=== PATIENT | female | born 2000 | race Caucasian/White ===

== ENCOUNTER 2019-08-24 12:50 | Inpatient (IN) | payer MEDICAID ==
[~2019-08-24] VITALS: Ht 152.4 cm; Wt 49.9 kg
[2019-08-24 12:50] VITALS: BP_SYST 114
--- NOTE | 2019-08-24 12:50 | NUR ---
BROUGHT BACK TO BED #4 VIA WHEELCHAIR, PT IS NON-RESPONSIVE, CYANOTIC, WITH AGONAL RESPIRATIONS. PLACED IN BED #[address] AVILES TO COME TO BEDSIDE. PT MOVED TO ROOM #1 FOR CLOSER OBSERVATION. AUNT STATES PT IS WITHDRAWLING FROM XANAX AND PERCOCETS, PT HAS BEEN HOMELESS BUT NOW STAYING WITH AUNT. AUNT STATES PT HAS NOT HAD ANY XANAX FOR LAST 2 DAYS, THEY ARE WEANING HER FROM THEM.
--- NOTE | 2019-08-24 12:50 | NUR ---
BRENDA Skinner at bedside examining patient.
[2019-08-24] MEDS ORDERED: SUCCINYLCHOLINE CHLORIDE 20 MG/ML(QUELICIN) IVP ONE ×2 (12:51→13:15)
[2019-08-24] MEDS ORDERED: ETOMIDATE 20 MG/ 10 ML VIAL (AMIDATE) IVP ONE ×2 (12:51→13:15)
--- NOTE | 2019-08-24 13:04 | NUR ---
RT NOTES ER 4, Pt was ventilated with 100% O2 via ambubag to mask, transferred to ER 1 for intubation.
--- NOTE | 2019-08-24 13:05 | NUR ---
ETOMIDATE 20MG GIVEN FOR PREP TO BE INTUBATED
--- NOTE | 2019-08-24 13:05 | NUR ---
Patient not known to be of DNR status. Patient medicated with mg of 20mg Etom and 100mg of Succ for sedation prior to placement of ET tube. Respiratory therapy at bedside prior to placement. Size 7 ET tube placed by Dr. Skinner. Cuff inflated with 10 cc air. Auscultation of breath sounds over bilateral chest wall. ET tube secured with O2 sats 98% pulse ox. PCXR ordered to check tube placement.
--- NOTE | 2019-08-24 13:06 | NUR ---
SUCCS 100MG IV GIVEN
--- NOTE | 2019-08-24 13:08 | NUR ---
RT NOTES Pt. was intubated by Dr Skinner with 7.0 ETT secured at 22 cm lipline. CO2 detector changed to yellow. Bilateral b/s & chest rise noted. Placed pt on vent AC 14 350 100. Awaiting cxr and abg results
[2019-08-24] MEDS ORDERED: ONDANSETRON HCL 4 MG/2 ML VIAL IVP ONE (13:15)
[2019-08-24] MEDS ORDERED: LORazepam 2 MG/ML VIAL IVP ONE ×2 (13:15→19:15)
[2019-08-24] MEDS ORDERED: NACL 0.9% 2,000 ML IV ONE (13:15)
--- NOTE | 2019-08-24 13:15 | NUR ---
Radiology at bedside to perform CXR
[2019-08-24] MEDS ORDERED: ONDANSETRON HCL 4 MG/2 ML VIAL ONE (13:19)
[2019-08-24] MEDS ORDERED: LORazepam 2 MG/ML VIAL ONE (13:22)
[2019-08-24] MEDS ORDERED: LORazepam 2 MG/ML VIAL IM ONE (13:30)
[2019-08-24] MEDS ORDERED: NACL 0.9% 1,000 ML IV ONE ×2 (13:30→15:45)
[2019-08-24] MEDS ORDERED: PROPOFOL DRIP 100 ML IV ONE ×2 (13:30→13:41)
--- NOTE | 2019-08-24 13:31 | NUR ---
Propofol started and then d/c'd due to low BP. MD ordered levophed and versed.
[2019-08-24] MEDS ORDERED: KETAMINE 30 MG/3 ML SYRINGE 30 MG in NS 100 ML IV ONE (13:45)
--- NOTE | 2019-08-24 13:45 | NUR ---
RT NOTES Pulled ETT to 20cm with RT Director Zac per CXR, vent settings to AC 20 380 75% per ABG results.
--- NOTE | 2019-08-24 13:45 | NUR ---
RT NOTES: Late entry Pt came in with what appears to be wound/scab on left cheek, RN aware and provided RT with skin barrier to be placed under ETT tape.
[2019-08-24] MEDS ORDERED: NOREPINEPHRINE BITARTRATE 4 MG in NS 246 ML IV ONE (14:00)
[2019-08-24] MEDS ORDERED: KETAMINE 30 MG/3 ML SYRINGE ONE (14:18)
--- NOTE | 2019-08-24 14:20 | NUR ---
Triple lumen central line placed by MD to Right IJ, pt tolerated well. CXR completed to confirm placement.
--- NOTE | 2019-08-24 14:30 | NUR ---
# 16 FR Fritz catheter with use of sterile technique. Immediate return of 10 cc rush urine noted. Bedside drainage bag placed below level of bladder. Urine sample collected and sent to lab. Pt tolerated procedure well.
--- NOTE | 2019-08-24 14:40 | NUR ---
# 14 FR NG tube placed to right nare. Placement checked by auscultation of instilled air into stomach and aspiration of gastric contents. Tubing taped in place to prevent dislodging. Patient tolerated well. Addendum: 08/24/19 at 1916 by JOHNIEEDWARay #16 F NG tube placed
[2019-08-24] MEDS ORDERED: PIPERACILLIN/TAZO 3.375 GM in NS 50 ML IV ONE (15:00)
[2019-08-24 15:01] LABS: HEMATOCRIT 36.6 % (36-48); HEMOGLOBIN 12.1 g/dL (12.0-16.0); MEAN CORPUSCULAR HEMOGLOBIN 31 pg (27-31); MEAN CORPUSCULAR HGB CONC 33 % (32-36); MEAN CORPUSCULAR VOLUME 94 fL (79.0-98.0); PLATELET COUNT (AUTO) 179 K/uL (130-430); RED BLOOD CELL COUNT(AUTO) 3.92 MIL/uL (4.2-6.2); RED CELL DISTRIBUTION WIDTH 13.8 % (9.0-15.0); WHITE BLOOD COUNT (AUTO) 18.7 K/uL (4.5-11.0)
--- NOTE | 2019-08-24 15:10 | NUR ---
Urine collected from olsen and sent to Lab
--- NOTE | 2019-08-24 15:14 | NUR ---
EKG performed at BS by RN. Physician given copy of EKG for review.
--- NOTE | 2019-08-24 15:15 | NUR ---
Nasal swab obtained to r/o covid as per MD order
[2019-08-24 15:25] LABS: ANION GAP 16 (5-15); CHLORIDE 102 mmol/L (98-107); CREATININE 2.27 mg/dL (0.55-1.30); GLUCOSE 83 mg/dL (70-99); POTASSIUM 3.4 mmol/L (3.5-5.1); SODIUM SERUM 138 mmol/L (136-145); UREA NITROGEN, BLOOD 27 mg/dL (8-21)
[2019-08-24 15:28] LABS: GFR AFRICAN AMERICAN 36 mL/min (>90)
[2019-08-24] MEDS ORDERED: AZITHROMYCIN 500 MG in NS 250 ML IV ONE (15:30)
[2019-08-24 15:34] LABS: CALCIUM 6.1 mg/dL (8.4-11.0)
[2019-08-24] MEDS ORDERED: PIPERACILLIN/TAZOBACTAM 3.375 GM/VIAL (ZOSYN) IV ONE (15:35)
[2019-08-24 15:37] LABS: ALANINE AMINOTRANSFERASE 541 U/L (12-78); ASPARTATE AMINOTRANSFERASE 852 U/L (10-37)
[2019-08-24 15:38] LABS: ACETAMINOPHEN 4 ug/mL (1-30); ALCOHOL, BLOOD < 3 mg/dL (<10)
[2019-08-24 15:46] LABS: ATYPICAL LYMPHOCYTES % 0 % (0-0); BAND % (MANUAL) 82 % (0-6); BASOPHILS % (MANUAL) 0 % (0-2); EOSINOPHILS % (MANUAL) 0 % (0-7); LYMPHOCYTES % (MANUAL) 0 % (20-46); METAMYELOCYTES % 4 % (0-0); MONOCYTES % (MANUAL) 1 % (0-11)
[2019-08-24 15:58] LABS: BILIRUBIN,URINE 2+ (NEGATIVE); BLOOD, URINE 3+ (NEGATIVE); CLARITY/URINE CLOUDY (CLEAR); GLUCOSE,URINE NEGATIVE (NEGATIVE); KETONES,URINE 1+ (NEGATIVE); LEUKOCYTE ESTERASE ,URINE TRACE (NEGATIVE); NITRITE, URINE NEGATIVE (NEGATIVE); PROTEIN URINE 2+ (NEGATIVE)
[2019-08-24] MEDS ORDERED: PANTOPRAZOLE SODIUM 40 MG/VIAL (PROTONIX) IVP ONE (16:00)
[2019-08-24] MEDS: MIDAZOLAM HCL IN 0.9 % NACL/PF 50 ML IV PRN (16:00)
[2019-08-24 16:08] LABS: INR 1.7 (0.8-1.2); PROTHROMBIN TIME 17.1 SECS (9.5-12.5)
[2019-08-24 16:12] LABS: COLOR,URINE AMBER (YELLOW)
[2019-08-24] MEDS ORDERED: SODIUM BICARBONATE 8.4% JECT 50 MEQ/50 ML SYRINGE IVP ONE (16:15)
[2019-08-24 16:16] LABS: BARBITURATE, URINE NEGATIVE (NEG <=200); BENZODIAZEPINE, URINE POSITIVE (NEG <=150); CANNABINOID, URINE POSITIVE (NEG <=50); COCAINE, URINE NEGATIVE (NEG <=150); METHAMPHETAMINES SCREEN,URINE NEGATIVE (NEG <=500); OPIATE, URINE POSITIVE (NEG <=100); PHENCYCLIDINE SCREEN,URINE NEGATIVE (NEG <=25); UR TRICYCLIC ANTIDEPRESSANTS NEGATIVE (NEG <=300); URINE AMPHETAMINE NEGATIVE (NEG <=500); URINE METHADONE NEGATIVE (NEG <=200); URINE OXYCODONE SCREEN NEGATIVE (NEG <=100); URINE PROPOXYPHENE SCREEN NEGATIVE (NEG <=300)
[2019-08-24] MEDS ORDERED: AZITHROMYCIN 500 MG/VIAL (ZITHROMAX) IV ONE (16:37)
[2019-08-24 16:41] LABS: BACTERIA,URINE FEW /HPF (None Seen)
[2019-08-24 16:42] LABS: COARSE GRANULAR CASTS,URINE 0-10 /LPF (None Seen); FINE GRANULAR CASTS,URINE 0-10 /LPF (None Seen); MUCUS,URINE None Seen /LPF (None Seen); URINE AMORPHOUS URATE 3+ /HPF (None Seen)
--- NOTE | 2019-08-24 16:42 | NUR ---
Spoke to Bahman, correctional casework specialist, stated that pt is 18 y/o and shouldnt be admitted under a peds doctor. Informed correctional casework specialist that pt was not admitted to a peds doctor, but to our instructional support assistant hospitalist, Dr. Thompson, and that Dr. Skinner, ER Physician, said to admit pt due to pt's critical status. insurance: [facility]
[2019-08-24] MEDS: NACL 0.9% 1,000 ML IV SCH ×2 (17:04→20:45)
[2019-08-24 17:09] LABS: C-REACTIVE PROTEIN QUANT 39.7 mg/dL (0-0.5)
[2019-08-24] MEDS ORDERED: POTASSIUM CHLORIDE 20 MEQ/PKT PACKET PO ONE (17:15)
[2019-08-24] MEDS ORDERED: CHOLECALCIFEROL (VITAMIN D3) 2,000 UNIT TABLET PO ONE (17:15)
[2019-08-24] MEDS ORDERED: CALCIUM CHLORIDE 1 GM in NS 100 ML IV ONE (17:15)
--- NOTE | 2019-08-24 17:20 | NUR ---
Blood sugar 74mg/dL, MD aware ordered 50 of dextrose IV, given.
[2019-08-24] MEDS ORDERED: DEXTROSE 50% JECT 50 ML DISP.SYRIN IVP ONE (17:30)
[2019-08-24] MEDS ORDERED: PIPERACILLIN/TAZO 3.375 GM in NS 50 ML IV SCH (18:00)
--- NOTE | 2019-08-24 18:07 | NUR ---
Blood sugar rechecked 147mg/dL, aware
--- NOTE | 2019-08-24 18:15 | NUR ---
Per Dr. Skinner, seizure precations in place
--- NOTE | 2019-08-24 18:18 | NUR ---
Pt swabbed for MRSA and Influenza as ordered by .
--- NOTE | 2019-08-24 18:33 | NUR ---
Per safia Roy to wean down on levophed slowly to keep SBP above 110
[2019-08-24] MEDS ORDERED: DEXAMETHASONE SOD PHOSPHATE 4 MG/ML VIAL IVP ONE (18:45)
--- NOTE | 2019-08-24 19:20 | NUR ---
Care of patient endorsed to CHARLES Brown. Pt currently resting in bed.
--- NOTE | 2019-08-24 19:25 | NUR ---
Assumed care of patient, patient resting at this time. Mother at bedside and reports that the patient had a similar incident last month in which patient overdosed on Xanax and ran out of the hospital. Patient reported to mother that she had overdosed on Thursday morning. Patient under the supervision of her aunt who manages a sober living and has tried to wean patient off the Xanax. Patient was reported to have slept all day yesterday and today brought to the ED for cyanosis and agonal breathing. Patient currently on seizure precautions, intubated with [address] secured 23 cm at the teeth. Levophed running and to titrate q 10 minutes to maintain SBP >110.
[2019-08-24] MEDS: ACETAMINOPHEN 650 MG/20.3 ML UDC PO PRN (20:16)
--- NOTE | 2019-08-24 20:16 | NUR ---
Acetaminophen 650mg given via 16 FR NGT for temporal temperature 101.3. Patient tolerated well.
--- NOTE | 2019-08-24 20:30 | NUR ---
No adverse reactions noted aftermedication administration. Will continue to monitor.
[2019-08-24 20:34] LABS: CREATININE 1.93 mg/dL (0.55-1.30)
--- NOTE | 2019-08-24 20:40 | NUR ---
End of life care decisions discussed with mother by Dr. Gray. Opportunity for questions and concerns addressed. Patient's code status is FULL CODE paperwork completed and placed in chart.
[2019-08-24 20:41] LABS: CALCIUM 6.9 mg/dL (8.4-11.0); POTASSIUM 2.9 mmol/L (3.5-5.1)
--- NOTE | 2019-08-24 20:55 | NUR ---
BS 91 @ 2049.
[2019-08-24] MEDS ORDERED: KCL 40 mEq in 100 mL (PREMIX) 100 ML IV ONE (21:00)
[2019-08-24] MEDS ORDERED: CALCIUM GLUCONATE 1 GM/10 ML VIAL IVP ONE (21:00)
[2019-08-24] MEDS: CALCIUM CARBONATE 500 MG/ TAB.CHEW PO SCH (21:02)
[2019-08-24] MEDS ORDERED: KCL 20 mEq in 100 mL (PREMIX) 200 ML IV ONE (21:21)
[2019-08-24] MEDS: PANTOPRAZOLE SODIUM 40 MG/VIAL (PROTONIX) IVP SCH (21:28)
[2019-08-24] MEDS: HEPARIN SODIUM,PORCINE 5000 UNITS/ML VIAL SUBCUT SCH (21:59)
--- NOTE | 2019-08-24 22:18 | NUR ---
600 ml of dark yellow urine removed from olsen catheter bag.
--- NOTE | 2019-08-24 22:20 | NUR ---
Patient to be transported to ICU-8 accompanied by RN and RT at this time.
[2019-08-24 22:45] VITALS: BP_SYST 97
--- NOTE | 2019-08-24 22:45 | NUR ---
RECEIVED FROM DEPT VIA [facility], A 18 YO FEMALE WITH DIAGNOSIS OF ACUTE RESPIRATORY FAILURE. URINE DRUG SCREEN WAS FOUND TO BE POSITIVE FOR BENZO'S, CANNABIS, AND OPIATES. ORALLY INTUBATED. NGT TO RIGHT NARES PLACED ON LIS WITH GREENISH BROWN SECRETIONS DRAINING. SINGH CATH PATENT DRAINING CLEAR YELLOW URINE TO GRAVITY. RIGHT IJ TLC DRSG D/I. SINUS TACH ON MONITOR. Addendum: 08/25/19 at 0400 by Ramiro Moody RN LEVOPHED DRIP AT 18 MCG/MIN, VERSED DRIP AT 1 MG/HR.
[2019-08-24 23:00] VITALS: BP_SYST 93
--- NOTE | 2019-08-24 23:10 | NUR ---
PAGED DR. BOYD PAGER # [phone]
[2019-08-24 23:30] VITALS: BP_SYST 97
[2019-08-24] MEDS ORDERED: NOREPINEPHRINE 4 MG/4 ML VIAL IV ONE (23:41)
[2019-08-24] MEDS: NOREPINEPHRINE BITARTRATE 4 MG in NS 246 ML IV PRN (23:56)
[2019-08-24] MEDS: PIPERACILLIN/TAZO 2.25G/DEX-IS 50 ML IV SCH (23:57)
[2019-08-25] VITALS (36 sets, daily range): BP systolic 83–125
--- NOTE | 2019-08-25 | NUR ---
SUCTIONED ETT WITH SMALL AMOUNT OF THIN WHITE MUCUS OBTAINED. ORAL CARE GIVEN.
[2019-08-25] MEDS: CALCIUM CARBONATE 500 MG/ TAB.CHEW PO SCH ×5 (00:02→20:43)
--- NOTE | 2019-08-25 00:30 | NUR ---
LEVOPHED DRIP TITRATED TO 20 MCG/MIN.
--- NOTE | 2019-08-25 01:30 | NUR ---
VERSED DRIP TITRATED TO 2 MG/HR.
[2019-08-25] MEDS ORDERED: NOREPINEPHRINE 4 MG/4 ML VIAL IV ONE ×2 (02:37→08:38)
--- NOTE | 2019-08-25 03:00 | NUR ---
OPENS EYES SPONTANEOUSLY MOMENTARILY. ABLE TO TRACK.
[2019-08-25] MEDS: NACL 0.9% 1,000 ML IV SCH ×5 (03:04→20:45)
[2019-08-25] MEDS: NOREPINEPHRINE BITARTRATE 4 MG in NS 246 ML IV PRN ×3 (03:48→23:52)
--- NOTE | 2019-08-25 04:00 | NUR ---
SUCTIONED. ORAL CARE RENDERED. REPOSITIONED.
[2019-08-25 05:38] LABS: BASOPHILS % (AUTO) 0.1 % (0.0-2.0); EOSINOPHILS # (AUTO) 0.1 K/uL (0.0-0.4); EOSINOPHILS % (AUTO) 0.1 % (0.0-4.0); HEMATOCRIT 35.6 % (36-48); LYMPHOCYTES # (AUTO) 0.3 K/uL (1.0-5.5); LYMPHOCYTES % (AUTO) 0.6 % (20.5-51.5); MEAN CORPUSCULAR HEMOGLOBIN 32 pg (27-31); MEAN CORPUSCULAR HGB CONC 34 % (32-36); MEAN CORPUSCULAR VOLUME 93 fL (79.0-98.0); MONOCYTES # (AUTO) 0.6 K/uL (0.0-1.0); MONOCYTES % (AUTO) 1.2 % (1.7-9.3); NEUTROPHILS # (AUTO) 47.3 K/uL (1.8-7.7); PLATELET COUNT (AUTO) 171 K/uL (130-430); RED BLOOD CELL COUNT(AUTO) 3.82 MIL/uL (4.2-6.2); RED CELL DISTRIBUTION WIDTH 14.2 % (9.0-15.0)
[2019-08-25 05:47] LABS: WHITE BLOOD COUNT (AUTO) 48.3 K/uL (4.5-11.0)
[2019-08-25] MEDS: HEPARIN SODIUM,PORCINE 5000 UNITS/ML VIAL SUBCUT SCH ×3 (05:54→21:45)
[2019-08-25] MEDS: PIPERACILLIN/TAZO 2.25G/DEX-IS 50 ML IV SCH ×4 (05:54→23:28)
--- NOTE | 2019-08-25 05:59 | NUR ---
CONSULT DR. BALLESTEROS SEPSIS [phone] SPOKE WITH RENNY
--- NOTE | 2019-08-25 06:00 | NUR ---
CALL PLACED TO DR BALLESTEROS FOR ID CONSULT AND TO REPORT WBC48.3 AND BLOOD CULTURES GRAM POSITIVE COCCI IN CHAINS. WAITING FOR CALL BACK.
--- NOTE | 2019-08-25 08:00 | NUR ---
Opening Notes Patient received in bed connected to civil designer with ST. Patient intubated and on ventilator with settings AC 20, FiO2 70%, tidal volume 380 breathing evenly and unlabored. Patient with RIJ receiving fluids, levophed, and versed. Patient with right nare NGT to low-intermittent suction with green-colored output. Patient has a olsen catheter draining yellow urine. Safety and isolation precautions observed.
[2019-08-25 08:03] LABS: CALCIUM 6.5 mg/dL (8.4-11.0); POTASSIUM 3.5 mmol/L (3.5-5.1)
[2019-08-25 08:04] LABS: CREATININE 1.46 mg/dL (0.55-1.30); TOTAL BILIRUBIN 1.4 mg/dL (0.0-1.0)
[2019-08-25 08:05] LABS: ALBUMIN 1.5 g/dL (3.4-4.8)
[2019-08-25 08:06] LABS: PHOSPHORUS 4.9 mg/dL (2.7-4.5)
[2019-08-25] MEDS ORDERED: VASOPRESSIN 200 UNITS in D5W 90 ML IV PRN (08:30)
[2019-08-25] MEDS ORDERED: MAGNESIUM SULFATE 50 ML IV ONE (08:30)
[2019-08-25] MEDS ORDERED: CALCIUM CHLORIDE 1 GM/10ML VIAL (13.6 mEq Ca++/VIAL) IV ONE (08:30)
[2019-08-25] MEDS: CHOLECALCIFEROL (VITAMIN D3) 2,000 UNIT TABLET PO SCH (08:48)
[2019-08-25] MEDS: PANTOPRAZOLE SODIUM 40 MG/VIAL (PROTONIX) IVP SCH ×2 (08:48→20:45)
[2019-08-25] MEDS ORDERED: FAMOTIDINE PF 20 MG/2 ML VIAL IVP SCH (09:00)
--- NOTE | 2019-08-25 09:10 | NUR ---
0910 TITRATED FIO2 DOWN TO 50% PER ABIDALI. SPO2 99%, HR 106. PT TOLERATING WELL
[2019-08-25] MEDS ORDERED: CALCIUM CHLORIDE 2 GM in NS 100 ML IV ONE (09:30)
--- NOTE | 2019-08-25 10:00 | NUR ---
CT Patient taken to radiology accompanied by RT and tech. Patient tolerated well. No signs of distress noted. Patient returned to ICU-8 and connected to lab scientist. Patient repositioned and suctioned with minimal secretions out.
--- NOTE | 2019-08-25 10:10 | NUR ---
[id number] BAGGED PT VIA AMBU BAG 15LPM. NO RESPIRATORY DISTRESS NOTED.
--- NOTE | 2019-08-25 10:33 | NUR ---
Nutrition Update Kunal Scale 15 noted. Pt admitted for acute respiratory failure Diet: 2CALHN at 30ml/hr, 100ml FWF Q6h BMI: 21.5 kg/m2 RD to follow per nutrition care standards.
[2019-08-25] MEDS: MIDAZOLAM HCL IN 0.9 % NACL/PF 50 ML IV PRN ×2 (11:32→20:38)
[2019-08-25] MEDS ORDERED: MIDAZOLAM HCL IN 0.9 % NACL/PF 50 ML IV ONE (11:37)
[2019-08-25] MEDS: VANCOMYCIN HCL 1,000 MG in NS 250 ML IV SCH (11:42)
--- NOTE | 2019-08-25 12:00 | NUR ---
RN Rounds Patient in no signs of distress at this time. Patient sedated with eyes closed. Patient responds to tactile stimuli. Performed bedside and oral care. Patient suctioned with small amount of secretions. Safety and isolation precautions enforced.
[2019-08-25 12:08] LABS: HEMATOCRIT 34.1 % (36-48); HEMOGLOBIN 11.3 g/dL (12.0-16.0); MEAN CORPUSCULAR HEMOGLOBIN 31 pg (27-31); MEAN CORPUSCULAR HGB CONC 33 % (32-36); MEAN CORPUSCULAR VOLUME 94 fL (79.0-98.0); PLATELET COUNT (AUTO) 148 K/uL (130-430); RED BLOOD CELL COUNT(AUTO) 3.65 MIL/uL (4.2-6.2); RED CELL DISTRIBUTION WIDTH 14.1 % (9.0-15.0)
[2019-08-25 12:12] LABS: WHITE BLOOD COUNT (AUTO) 40.9 K/uL (4.5-11.0)
[2019-08-25 12:32] LABS: ATYPICAL LYMPHOCYTES % 0 % (0-0); BAND % (MANUAL) 76 % (0-6); BASOPHILS % (MANUAL) 0 % (0-2); EOSINOPHILS % (MANUAL) 0 % (0-7); LYMPHOCYTES % (MANUAL) 2 % (20-46); MONOCYTES % (MANUAL) 1 % (0-11)
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
--- NOTE | 2019-08-25 15:10 | NUR ---
1510 TITRATED FIO2 DOWN TO 40%. SPO2 96%, HR 89. PT TOLERATING WELL.
[2019-08-25] MEDS: AZITHROMYCIN 500 MG in NS 250 ML IV SCH (15:53)
--- NOTE | 2019-08-25 16:00 | NUR ---
RN Rounds Patient resting in bed currently being sedated at this time. Patient in no signs of distress noted. Safety and isolation precautions enforced.
--- NOTE | 2019-08-25 16:46 | NUR ---
Dietitian Recommendations *Recommend Jevity 1.5 at 40ml/hr with 100ml free water flush Q6h. *Provides 1440 calories, 61g of protein, and 1130ml total of free H20 *Meets 107% of calories and 81% of protein estimated nutrition needs Please see Nutrition Assessment for details. LT, RD
[2019-08-25 16:57] LABS: CALCIUM 8.5 mg/dL (8.4-11.0); CREATININE 1.23 mg/dL (0.55-1.30); POTASSIUM 3.5 mmol/L (3.5-5.1)
--- NOTE | 2019-08-25 17:35 | NUR ---
Called Dr. Rider with a consult, spoke with Earnest from the exchange
[2019-08-25] MEDS: HYDROCORTISONE 10 MG TABLET (CORTEF) PO SCH ×2 (19:00→23:28)
--- NOTE | 2019-08-25 19:30 | NUR ---
Closing Note Provided plan of care via sbar from endorsing CHARLES Calles.
--- NOTE | 2019-08-25 19:30 | NUR ---
Opening Note Received plan of care via sbar from endorsing CHARLES Calles.
--- NOTE | 2019-08-25 19:43 | NUR ---
Closing Notes Endorsed to awake overnight counselor RN using SBAR format. No signs of distress noted.
[2019-08-26] VITALS (31 sets, daily range): BP systolic 90–133
--- NOTE | 2019-08-26 01:05 | NUR ---
Opening Note Received report from CHARLES Vera using SBAR approach.
--- NOTE | 2019-08-26 01:45 | NUR ---
RN Rounds Patient is sedated and sleeping in bed with no signs or symptoms of distress noted. Patient is currently intubated with settings AC 20, Tidal Volume: 380, FiO2 380, PEEP 5. Fritz catheter is draining via gravity. Patient is on Tubefeeding with residual of 50 cc. Suctioned patient and got minimal gage sputum. Bed locked in lowest position, safety precautions in place. Will continue to monitor patient.
--- NOTE | 2019-08-26 02:00 | NUR ---
CHG Provided patient with CHG bath. Clean linens changed. Patient tolerated well. No signs or symptoms of distress. Will continue to monitor.
--- NOTE | 2019-08-26 04:30 | NUR ---
MD rounds Dr. Benavidez came to see patient. New orders received.
[2019-08-26] MEDS: NACL 0.9% 1,000 ML IV SCH ×3 (04:56→12:45)
[2019-08-26] MEDS: PIPERACILLIN/TAZO 2.25G/DEX-IS 50 ML IV SCH ×4 (05:13→23:16)
[2019-08-26] MEDS: HYDROCORTISONE 10 MG TABLET (CORTEF) PO SCH ×4 (05:13→23:16)
[2019-08-26] MEDS: HEPARIN SODIUM,PORCINE 5000 UNITS/ML VIAL SUBCUT SCH ×3 (05:17→21:21)
--- NOTE | 2019-08-26 07:15 | NUR ---
Closing Note Endorsed report to AM nurse using SBAR approach.
[2019-08-26] MEDS ORDERED: MIDAZOLAM HCL 5 MG/5 ML VIAL ONE ×2 (07:19→07:20)
--- NOTE | 2019-08-26 07:30 | NUR ---
Opening Notes Patient received in bed on cardiac catheterization technician with NSR. Patient orally intubated with settings of AC 20, FiO2 40%, tidal volume 380, PEEP 5 breathing evenly and unlabored with no signs of distress noted. Patient with right nare NGT. Patient with RIJ receiving fluids and multiple drips. Patient has a olsen catheter draining rush-colored urine. Safety precautions enforced.
[2019-08-26] MEDS: MIDAZOLAM HCL IN 0.9 % NACL/PF 50 ML IV PRN ×2 (07:59→17:38)
[2019-08-26 08:08] LABS: HEPATITIS A AB, IgM Negative (Negative); HEPATITIS B CORE AB, IgM Negative (Negative); HEPATITIS B SURFACE AG Negative (Negative)
[2019-08-26 08:28] LABS: HEMOGLOBIN 10.3 g/dL (12.0-16.0); MEAN CORPUSCULAR HGB CONC 33 % (32-36); RED CELL DISTRIBUTION WIDTH 14.7 % (9.0-15.0)
[2019-08-26 08:36] LABS: BASOPHILS % (AUTO) 0.1 % (0.0-2.0); EOSINOPHILS % (AUTO) 0.1 % (0.0-4.0); HEMATOCRIT 31.3 % (36-48); LYMPHOCYTES # (AUTO) 0.8 K/uL (1.0-5.5); LYMPHOCYTES % (AUTO) 2.2 % (20.5-51.5); MEAN CORPUSCULAR HEMOGLOBIN 31 pg (27-31); MEAN CORPUSCULAR VOLUME 94 fL (79.0-98.0); MONOCYTES # (AUTO) 0.7 K/uL (0.0-1.0); MONOCYTES % (AUTO) 1.9 % (1.7-9.3); NEUTROPHILS # (AUTO) 36.7 K/uL (1.8-7.7); PLATELET COUNT (AUTO) 107 K/uL (130-430); RED BLOOD CELL COUNT(AUTO) 3.32 MIL/uL (4.2-6.2)
[2019-08-26] MEDS ORDERED: QUEtiapine FUMARATE 25 MG TABLET PO SCH (09:00)
[2019-08-26 09:05] LABS: WHITE BLOOD COUNT (AUTO) 38.3 K/uL (4.5-11.0)
[2019-08-26 09:06] LABS: ALBUMIN 1.5 g/dL (3.4-4.8); CALCIUM 7.1 mg/dL (8.4-11.0); CREATININE 0.87 mg/dL (0.55-1.30); NEUTROPHILS % (AUTO) 95.7 % (40.0-70.0); PHOSPHORUS 3.4 mg/dL (2.7-4.5); POTASSIUM 3.6 mmol/L (3.5-5.1); TOTAL BILIRUBIN 0.7 mg/dL (0.0-1.0)
[2019-08-26 09:31] LABS: C-REACTIVE PROTEIN QUANT 49.1 mg/dL (0-0.5)
[2019-08-26] MEDS: PANTOPRAZOLE SODIUM 40 MG/VIAL (PROTONIX) IVP SCH ×2 (09:32→20:52)
[2019-08-26] MEDS: CALCIUM CARBONATE 500 MG/ TAB.CHEW PO SCH ×4 (09:32→20:52)
[2019-08-26] MEDS: VANCOMYCIN HCL 1,000 MG in NS 250 ML IV SCH (09:32)
[2019-08-26] MEDS: CHOLECALCIFEROL (VITAMIN D3) 2,000 UNIT TABLET PO SCH ×2 (09:32→20:52)
[2019-08-26 09:50] LABS: INR 1.3 (0.8-1.2); PROTHROMBIN TIME 13.1 SECS (9.5-12.5)
[2019-08-26 10:02] LABS: CKMB RELATIVE INDEX 0.5 (0.0-2.9); CREATINE KINASE MB 4.4 ng/mL (0-3.6)
[2019-08-26 10:12] LABS: ERYTHROCYTE SEDIMENTATION RATE 37 MM/HR (0-20)
--- NOTE | 2019-08-26 12:00 | NUR ---
RN Rounds Patient resting and sedated in bed with no signs of distress noted.
--- NOTE | 2019-08-26 13:20 | NUR ---
1320 TITRATED FIO2 DOWN TO 30%. SPO2 95%, HR 64. PT TOLERATING WELL.
[2019-08-26] MEDS: QUEtiapine FUMARATE 25 MG TABLET PO SCH ×3 (15:00→20:52)
[2019-08-26] MEDS: LR 1,000 ML IV SCH ×2 (15:18→20:51)
[2019-08-26] MEDS: AZITHROMYCIN 500 MG in NS 250 ML IV SCH (15:19)
--- NOTE | 2019-08-26 16:00 | NUR ---
RN Rounds Patient resting and sedated in bed with no signs of distress noted.
--- NOTE | 2019-08-26 19:38 | NUR ---
Closing Notes Closing Notes Patient endorsed to security shift supervisor RN using SBAR format. No signs of distress noted.
--- NOTE | 2019-08-26 19:39 | NUR ---
Opening Note Received report from AM nurse using SBAR approach.
--- NOTE | 2019-08-26 20:45 | NUR ---
RN Rounds Patient is sedated and sleeping in bed with no signs or symptoms of distress noted. Patient is currently intubated with settings AC 20, Tidal Volume: 380, FiO2 30, PEEP 5. Fritz catheter is draining via gravity. Suctioned patient and got minimal gage sputum. Bed locked in lowest position, safety precautions in place. Will continue to monitor patient.
[2019-08-26] MEDS: MAGNESIUM OXIDE 400 MG TABLET NG SCH (20:52)
[2019-08-26] MEDS: ASCORBIC ACID 500 MG TABLET NG SCH (20:52)
[2019-08-26] MEDS: NOREPINEPHRINE BITARTRATE 4 MG in NS 246 ML IV PRN (22:48)
[2019-08-27] VITALS (36 sets, daily range): BP systolic 98–137
[2019-08-27] MEDS: MIDAZOLAM HCL IN 0.9 % NACL/PF 50 ML IV PRN ×2 (01:42→17:32)
--- NOTE | 2019-08-27 03:30 | NUR ---
CHG Provided patient with CHG bath. Clean linens changed. Suctioned patient and got back medium amount of sputum. Patient tolerated well. No signs or symptoms of distress. Will continue to monitor.
[2019-08-27] MEDS: PIPERACILLIN/TAZO 2.25G/DEX-IS 50 ML IV SCH ×4 (04:55→22:56)
[2019-08-27] MEDS: HYDROCORTISONE 10 MG TABLET (CORTEF) PO SCH ×3 (04:55→22:57)
[2019-08-27] MEDS: LR 1,000 ML IV SCH (04:56)
[2019-08-27] MEDS: HEPARIN SODIUM,PORCINE 5000 UNITS/ML VIAL SUBCUT SCH ×3 (04:58→21:07)
[2019-08-27 06:31] LABS: HEMOGLOBIN 10.6 g/dL (12.0-16.0); MEAN CORPUSCULAR HEMOGLOBIN 31 pg (27-31); MEAN CORPUSCULAR HGB CONC 33 % (32-36); MEAN CORPUSCULAR VOLUME 94 fL (79.0-98.0); PLATELET COUNT (AUTO) 73 K/uL (130-430); RED BLOOD CELL COUNT(AUTO) 3.39 MIL/uL (4.2-6.2); RED CELL DISTRIBUTION WIDTH 14.7 % (9.0-15.0); WHITE BLOOD COUNT (AUTO) 23.5 K/uL (4.5-11.0)
[2019-08-27 07:01] LABS: ALBUMIN 1.5 g/dL (3.4-4.8); CALCIUM 7.5 mg/dL (8.4-11.0); CREATININE 0.82 mg/dL (0.55-1.30); POTASSIUM 3.7 mmol/L (3.5-5.1); TOTAL BILIRUBIN 0.5 mg/dL (0.0-1.0)
--- NOTE | 2019-08-27 07:15 | NUR ---
Closing Note Endorsed report to AM nurse using SBAR approach.
--- NOTE | 2019-08-27 08:03 | NUR ---
AM ASSESSMENT. PT INTUBATED, ORAL CARE DONE, WITH MODERATE AMOUNT OF THICK ORAL SECRETIONS OBTAINED, DR PIÑA CAME IN AND MADE AWARE, VENT CHANGED TO CPAP MODE. IV DRIPS INFUSING VERSED AT 2 MG/HR, LEVOPHED DRIP AT 2 MCG/MIN, LR AT 150 ML PER HR.
--- NOTE | 2019-08-27 08:15 | NUR ---
RT NOTES Found vent settings was changed by Dr Katz to CPAP [address] Katz at bedside noticed tachypnea and was made aware of pt's secretions, i was instructed to put vent settings back to previous settings, will more likely to do CPAP trial again tomorrow. RN made aware.
--- NOTE | 2019-08-27 08:20 | NUR ---
NURSING. PLACED PT TO HER SIDE, SUCTIONED VIA YANKAUER DONE NEEDED. HEAD OF BED ELEVATED AT 35 DEGREE ANGLE.
[2019-08-27] MEDS: PANTOPRAZOLE SODIUM 40 MG/VIAL (PROTONIX) IVP SCH ×2 (09:12→20:33)
[2019-08-27] MEDS: MAGNESIUM OXIDE 400 MG TABLET NG SCH ×2 (09:12→20:33)
[2019-08-27] MEDS: QUEtiapine FUMARATE 25 MG TABLET PO SCH ×3 (09:12→20:34)
[2019-08-27] MEDS: CHOLECALCIFEROL (VITAMIN D3) 2,000 UNIT TABLET PO SCH ×2 (09:12→20:33)
[2019-08-27] MEDS: ASCORBIC ACID 500 MG TABLET NG SCH ×2 (09:12→20:33)
[2019-08-27] MEDS: guaiFENesin 200 MG/10 ML UDC PO SCH ×4 (09:13→20:33)
[2019-08-27 09:19] LABS: BAND % (MANUAL) 5 % (0-6); BASOPHILS % (MANUAL) 0 % (0-2); EOSINOPHILS % (MANUAL) 0 % (0-7); LYMPHOCYTES % (MANUAL) 9 % (20-46); MONOCYTES % (MANUAL) 5 % (0-11)
[2019-08-27] MEDS: CALCIUM CARBONATE 500 MG/ TAB.CHEW PO SCH ×3 (11:41→20:33)
[2019-08-27] MEDS: VANCOMYCIN HCL 1,000 MG in NS 250 ML IV SCH (11:42)
--- NOTE | 2019-08-27 13:39 | NUR ---
RT NOTES- SPUTUM SAMPLE SPUTUM SAMPLE COLLECTED AND SENT TO LAB AT 1333. RN THERESE IS AWARE.
[2019-08-27] MEDS: AZITHROMYCIN 500 MG in NS 250 ML IV SCH (15:37)
--- NOTE | 2019-08-27 16:00 | NUR ---
SKIN CARE. TITRATED VERSED DRIP TO KEEP PT CALM, DRESSING FROM LEFT CHEEK REMOVED GENTLY, PT RESISTIVE TO HER CARE, SKIN TEAR NOTED TO LEFT CHEEK, R.T. AT BEDSIDE AND RE-TIED HER ET TUBE. FOAM DRESSING PLACED TO LEFT CHEEK.
[2019-08-27] MEDS: NOREPINEPHRINE BITARTRATE 4 MG in NS 246 ML IV PRN (17:30)
[2019-08-27] MEDS: KCL 40 mEq in D5W 1000 mL 1,000 ML IV SCH (17:33)
--- NOTE | 2019-08-27 19:25 | NUR ---
Opening Note Received report from AM nurse using SBAR approach.
--- NOTE | 2019-08-27 20:50 | NUR ---
RN Rounds Patient is sedated and sleeping in bed with no signs or symptoms of distress noted. Patient is currently intubated with settings AC 20, Tidal Volume: 380, FiO2 30, PEEP 5. Fritz catheter is draining via gravity. Patient is on Tubefeeding with residual of 50 cc. Suctioned patient and got minimal gage sputum. Bed locked in lowest position, safety precautions in place. Will continue to monitor patient.
[2019-08-28] VITALS (32 sets, daily range): BP systolic 103–135
--- NOTE | 2019-08-28 01:00 | NUR ---
CHG Provided CHG bath for patient and cleaned patient with rabago wipes. Repositioned patient and suctioned patient. Patient tolerated well. Will continue to monitor.
[2019-08-28] MEDS: KCL 40 mEq in D5W 1000 mL 1,000 ML IV SCH ×3 (01:29→20:28)
--- NOTE | 2019-08-28 02:30 | NUR ---
BM Patient had a large BM. Cleaned with rabago wipes and new linens changed. Patient tolerated well. No signs or symptoms of distress. Will continue to monitor.
--- NOTE | 2019-08-28 04:30 | NUR ---
WITNESS Witnessed CHARLES Hill titrate Versed Drip to 7mg/hr.
[2019-08-28] MEDS: PIPERACILLIN/TAZO 2.25G/DEX-IS 50 ML IV SCH ×3 (05:26→18:08)
[2019-08-28] MEDS: HEPARIN SODIUM,PORCINE 5000 UNITS/ML VIAL SUBCUT SCH (05:27)
--- NOTE | 2019-08-28 06:00 | NUR ---
BM Patient had another large bowel movement. Cleaned patient with rabago wipes and new linens changed. Patient tolerated well. Will continue to monitor.
[2019-08-28 06:56] LABS: BASOPHILS % (AUTO) 0.2 % (0.0-2.0); EOSINOPHILS % (AUTO) 0.1 % (0.0-4.0); HEMATOCRIT 36.3 % (36-48); HEMOGLOBIN 11.7 g/dL (12.0-16.0); LYMPHOCYTES # (AUTO) 4.5 K/uL (1.0-5.5); LYMPHOCYTES % (AUTO) 22.9 % (20.5-51.5); MEAN CORPUSCULAR HEMOGLOBIN 31 pg (27-31); MEAN CORPUSCULAR HGB CONC 32 % (32-36); MEAN CORPUSCULAR VOLUME 95 fL (79.0-98.0); MONOCYTES # (AUTO) 0.8 K/uL (0.0-1.0); MONOCYTES % (AUTO) 4.2 % (1.7-9.3); NEUTROPHILS # (AUTO) 14.2 K/uL (1.8-7.7); PLATELET COUNT (AUTO) 60 K/uL (130-430); RED BLOOD CELL COUNT(AUTO) 3.81 MIL/uL (4.2-6.2); RED CELL DISTRIBUTION WIDTH 14.7 % (9.0-15.0); WHITE BLOOD COUNT (AUTO) 19.6 K/uL (4.5-11.0)
[2019-08-28 07:25] LABS: ALBUMIN 1.9 g/dL (3.4-4.8); CALCIUM 7.2 mg/dL (8.4-11.0); CREATININE 0.71 mg/dL (0.55-1.30); POTASSIUM 3.7 mmol/L (3.5-5.1); TOTAL BILIRUBIN 0.4 mg/dL (0.0-1.0)
--- NOTE | 2019-08-28 07:25 | NUR ---
Closing Note Endorsed report to AM nurse using SBAR approach.
--- NOTE | 2019-08-28 07:50 | NUR ---
AM ASSESSMENT. PT INTUBATED, ON VERSED DRIP, OPENS HER EYES ON COMMAND, ORAL CARE PROVIDED, LARGE AMOUNT OF THICK SECRETION THRU AUSTINUER, RESTRAINTS ON AND OFF, TURNED PT TO HER SIDE, PT MOVES HER LEGS ON PURPOSE.
[2019-08-28 08:08] LABS: NEUTROPHILS % (AUTO) 72.6 % (40.0-70.0)
[2019-08-28] MEDS: QUEtiapine FUMARATE 25 MG TABLET PO SCH ×4 (09:00→20:27)
--- NOTE | 2019-08-28 09:00 | NUR ---
IV DRIPS. PT TO BE WEANED OFF FROM THE VENT. VERSED DRIP DISCONTINUED ORDERED BY DR PIÑA.
[2019-08-28] MEDS: ASCORBIC ACID 500 MG TABLET NG SCH ×2 (09:29→20:27)
[2019-08-28] MEDS: CALCIUM CARBONATE 500 MG/ TAB.CHEW PO SCH ×4 (09:29→20:27)
[2019-08-28] MEDS: guaiFENesin 200 MG/10 ML UDC PO SCH ×4 (09:29→20:27)
[2019-08-28] MEDS: MAGNESIUM OXIDE 400 MG TABLET NG SCH ×2 (09:29→20:27)
[2019-08-28] MEDS: CHOLECALCIFEROL (VITAMIN D3) 2,000 UNIT TABLET PO SCH ×2 (09:29→20:27)
[2019-08-28] MEDS: PANTOPRAZOLE SODIUM 40 MG/VIAL (PROTONIX) IVP SCH ×2 (09:29→20:28)
[2019-08-28] MEDS: VANCOMYCIN HCL 1,000 MG in NS 250 ML IV SCH (09:30)
--- NOTE | 2019-08-28 09:30 | NUR ---
RT NOTES Vent to CPAP [address] Katz, no immediate adverse reactions noted. Pt easily gets agitated when stimulated, pt was educated on CPAP trial, may need to re-enforce education provided. Will monitor pt.
[2019-08-28] MEDS: HYDROCORTISONE 10 MG TABLET (CORTEF) PO SCH (12:35)
--- NOTE | 2019-08-28 14:54 | NUR ---
Nutrition F/U Admitting Diagnosis: Acute respiratory failure Medical History Comment: PMHx includes polysubstance abuse per physician notes. Pt was found w/: respiratory failure, septic shock, PNA, transaminitis, electrolyte disturbance, and severe protein malnutrition per physician notes. 08/27 CXR: Persistent right basilar infiltrate. Increased left basilar infiltrate. Subjective Information Pt is on vent and in the ICU. RD visit was deferred d/t lack of PPE. RD s/w pt's primary RN who reported that pt is for possible extubation today. RN also reported some episodes of diarrhea earlier and associated it w/ abx therapy. Last BM 08/27 x3. If extubated, pt may need swallow eval. If pt remains intubated and needs continues tube feeding, pt may benefit from Vital AF 1.2 for better GI tolerance. Current Diet Order/Nutrition Support: Jevity 1.5 at 40ml/hr, FWF 100ml Q6H via NGT x 2 days Pertinent Medications: Protonix, Seroquel, Mag-ox, VIT C, VIT D, Vancomycin, Piperacillin/tazo, tums Pertinent Labs (08/27) WBC: 19.6 H (trending down), Na 150 H, K: 3.7WNL, BUN: 19 WNL (improved), CRE: 0.71 WNL (improved), eGFR: 113 WNL Skin Integrity Comment: Kunal Score: 15 RN notes +wound to R cheek. Current % PO Not applicable, on TF Estimated Energy Expenditure (kcals/day) 1347kcal/day ([id number] for critical illness on vent) Estimated Protein Required (g/day) 75-100g/day (1.5-2g/kg based on CBW for critical illness, sepsis) Estimated Fluid Required (l/day) 1.3-1.5L/day based on CBW for maintenance Problem/Etiology/Signs/Symptoms Increased nutrient needs r/t increased metabolic demands AEB critical illness sepsis (*ongoing) Expected Outcomes/Goals Monitor initiation and progression of nutrition support w/ goal of pt meeting at least 75% of estimated nutritional needs, labs trending WNL, normal GI function, and skin integrity/wt maintenance Dietitian Recommendations *Recommend Vital AF 1.2 at 50ml/hr (goal rate), FWF 100ml Q6H via NGT Provides 1440 calories, 90g of protein, and 1373ml total of free H20 Meets 107% of estimated calorie needs and 90% of upper end of estimated protein needs *Recommend Banatrol TID for diarrhea. *If/once pt is extubated, rec: swallow eval. Follow Up High Risk: F/U in 2-3days
--- NOTE | 2019-08-28 15:05 | NUR ---
Dietitian Recommendations *Recommend Vital AF 1.2 at 50ml/hr (goal rate), FWF 100ml Q6H via NGT Provides 1440 calories, 90g of protein, and 1373ml total of free H20 Meets 107% of estimated calorie needs and 90% of upper end of estimated protein needs *Recommend Banatrol TID for diarrhea. *If/once pt is extubated, rec: swallow eval. Please see Nutrition F/U for details. EDUIN, RD
--- NOTE | 2019-08-28 15:35 | NUR ---
RT NOTES Pt extubated and placed on 2L NC per dr Katz's order. No distress noted. Pt. was educated on deep breathing exercises, appears to comprehend instruction given. Pt. stated "she wants to shower"
--- NOTE | 2019-08-28 16:00 | NUR ---
FAMILY. PT'S MOTHER CALLED, UPDATE GIVEN ON HER STATUS. PT WANTING TO GO HOME.
[2019-08-28] MEDS: AZITHROMYCIN 500 MG in NS 250 ML IV SCH (16:04)
--- NOTE | 2019-08-28 17:00 | NUR ---
MD DR BARRY IN THE ROOM, EXAMINED PT. AWARE OF ECHOCARDIOGRAM REPORT. EF 51%.
--- NOTE | 2019-08-28 19:20 | NUR ---
OPENING NOTE SBAR REPORT RECEIVED FROM THERESE SOTO. CARE ASSUMED. PT LAYING IN BED. ANO X 3. PT ON 3L NC. O2 SATURATION 94%. PT SINUS RHYTHM ON MONITOR. RADIAL AND PEDAL PULSES NORMAL. 1+ PITTING EDEMA TO BILATERAL EXTREMITIES. BILATERAL WRIST RESTRAINTS IN PLACE. CIRCULATION INTACT. NO SIGNS OR SYMPTOMS OF RESTRAINT INJURY PRESENT. PT HAS NG TUBE TO LEFT NARE CLAMPED. ABDOMEN SOFT NON DISTENDED. SINGH CATHETER IN PLACE DRAINING TO GRAVITY. URINE YELLOW AND CLEAR. PT HAS WOUND TO LEFT CHEEK WITH FOAM DRESSING IN PLACE. BED LOCKED IN LOWEST POSITION. CALL LIGHT WITHIN REACH. SAFETY PRECAUTIONS IN PLACE. WILL CONTINUE TO MONITOR.
--- NOTE | 2019-08-28 22:30 | NUR ---
RN UPDATE NG TUBE REMOVED. PT TOLERATED PROCEDURE WELL. WILL CONTINUE TO MONITOR.
[2019-08-29] VITALS (20 sets, daily range): BP systolic 89–137
--- NOTE | 2019-08-29 | NUR ---
Family called Patient's mom called asking for update. Provided update for patient's mom. Addendum: 08/30/19 at 0322 by Liz Celaya RN wrong date
[2019-08-29] MEDS: MORPHINE 2 MG/ML INJ. SYRINGE IVP PRN ×5 (00:53→21:50)
[2019-08-29] MEDS: HYDROCORTISONE 10 MG TABLET (CORTEF) PO SCH ×3 (00:54→23:24)
[2019-08-29] MEDS: PIPERACILLIN/TAZO 2.25G/DEX-IS 50 ML IV SCH ×5 (00:55→23:24)
--- NOTE | 2019-08-29 02:21 | NUR ---
Morphine/Zofran Patient stated that she is still in pain and she feels nauseous. Provided patient with morphine and zofran prn. Patient tolerated well. Will continue to monitor. Addendum: 08/30/19 at 0321 by Liz Celaya RN wrong date
--- NOTE | 2019-08-29 07:20 | NUR ---
Opening Notes Pt received from night nurse using SBAR. Pt resting in bed with eyes open. Call light within reach, bed in lowest position. No complaints of distress at this time, will continue to monitor.
[2019-08-29 07:30] LABS: HEMATOCRIT 29.1 % (36-48); HEMOGLOBIN 9.9 g/dL (12.0-16.0); MEAN CORPUSCULAR HEMOGLOBIN 32 pg (27-31); MEAN CORPUSCULAR HGB CONC 34 % (32-36); MEAN CORPUSCULAR VOLUME 94 fL (79.0-98.0); PLATELET COUNT (AUTO) 86 K/uL (130-430); RED BLOOD CELL COUNT(AUTO) 3.09 MIL/uL (4.2-6.2); RED CELL DISTRIBUTION WIDTH 14.7 % (9.0-15.0); WHITE BLOOD COUNT (AUTO) 16.1 K/uL (4.5-11.0)
[2019-08-29 07:31] LABS: ALBUMIN 1.4 g/dL (3.4-4.8); CALCIUM 7.2 mg/dL (8.4-11.0); CREATININE 0.52 mg/dL (0.55-1.30); POTASSIUM 3.6 mmol/L (3.5-5.1); TOTAL BILIRUBIN 0.5 mg/dL (0.0-1.0)
--- NOTE | 2019-08-29 07:45 | NUR ---
CLOSING NOTE PT LAYING IN BED. NO SIGNS OR SYMPTOMS OF DISTRESS NOTED. VITAL SIGNS STABLE. SBAR REPORT GIVEN TO KATELYN SOTO. CARED ENDORSED.
[2019-08-29] MEDS: KCL 40 mEq in D5W 1000 mL 1,000 ML IV SCH (09:07)
[2019-08-29] MEDS: QUEtiapine FUMARATE 25 MG TABLET PO SCH ×4 (09:08→20:41)
[2019-08-29] MEDS: MAGNESIUM OXIDE 400 MG TABLET NG SCH ×2 (09:08→20:41)
[2019-08-29] MEDS: guaiFENesin 200 MG/10 ML UDC PO SCH ×6 (09:08→21:00)
[2019-08-29] MEDS: CHOLECALCIFEROL (VITAMIN D3) 2,000 UNIT TABLET PO SCH ×2 (09:08→20:40)
[2019-08-29 09:24] LABS: BAND % (MANUAL) 11 % (0-6)
[2019-08-29 09:25] LABS: ATYPICAL LYMPHOCYTES % 0 % (0-0); BASOPHILS % (MANUAL) 0 % (0-2); EOSINOPHILS % (MANUAL) 0 % (0-7); LYMPHOCYTES % (MANUAL) 13 % (20-46); MONOCYTES % (MANUAL) 2 % (0-11)
[2019-08-29] MEDS: VANCOMYCIN HCL 1,000 MG in NS 250 ML IV SCH (10:29)
[2019-08-29] MEDS: ASCORBIC ACID 500 MG TABLET NG SCH ×2 (10:30→20:40)
[2019-08-29] MEDS: CALCIUM CARBONATE 500 MG/ TAB.CHEW PO SCH ×6 (10:30→21:00)
[2019-08-29] MEDS: PANTOPRAZOLE SODIUM 40 MG/VIAL (PROTONIX) IVP SCH ×2 (10:30→20:41)
--- NOTE | 2019-08-29 10:47 | NUR ---
Family Spoke to pts mother Kylee provided update, provided pt with in room phone and was able to transfer the phone so pt can speak to mother.
--- NOTE | 2019-08-29 14:03 | NUR ---
Resting Pt resting in bed, no complaints of distress at this time. Will continue to monitor.
--- NOTE | 2019-08-29 15:12 | NUR ---
Called spoke to Jimmie informed that pt is extubated and able to be assessed.
[2019-08-29] MEDS: AZITHROMYCIN 500 MG in NS 250 ML IV SCH (15:23)
[2019-08-29] MEDS ORDERED: METOCLOPRAMIDE HCL 10 MG/2 ML VIAL IVP PRN (16:00)
[2019-08-29] MEDS: ONDANSETRON HCL 4 MG/2 ML VIAL IVP PRN (16:55)
[2019-08-29] MEDS ORDERED: busPIRone HCL 5 MG TABLET PO ONE (17:00)
[2019-08-29] MEDS ORDERED: ALPRAZolam 0.25 MG TABLET PO PRN (17:00)
--- NOTE | 2019-08-29 19:10 | NUR ---
Closing Notes Pt endorsed to night RN using SBAR
--- NOTE | 2019-08-29 19:15 | NUR ---
Opening Note Received report from AM nurse using SBAR approach.
--- NOTE | 2019-08-29 20:20 | NUR ---
PM Assessment Patient is resting in bed. AAO x3. Patient is on 2 L Nasal Cannula. O2 Saturation is 95%. Patient is sinus rhythm on the monitor. Patient has 1+ edema on hands, I massaged patient's hands so there could be some circulation. I relocated patient's blood pressure cuff to the left arm because the right arm was getting swollen. Bed locked in lowest position. Call light within reach. Safety precautions in place. Will continue to monitor.
[2019-08-29] MEDS: busPIRone HCL 5 MG TABLET PO SCH (20:40)
--- NOTE | 2019-08-29 21:52 | NUR ---
Morphine Patient complaining of pain in her lower back. Numeric score of 8/10 was given. Gave patient morphine. Patient tolerated well. Will continue to monitor.
[2019-08-29] MEDS ORDERED: VANCOMYCIN HCL 750 MG in NS 250 ML IV SCH (22:00)
[2019-08-29] MEDS: IPRATROPIUM/ALBUTEROL SULFATE 3 ML AMPUL.NEB (DUONEB) INH PRN (22:39)
[2019-08-30] VITALS (8 sets, daily range): BP systolic 95–129
--- NOTE | 2019-08-30 | NUR ---
Family called Patient's mom called asking for update. Provided update for patient's mom.
[2019-08-30] MEDS: MORPHINE 2 MG/ML INJ. SYRINGE IVP PRN ×4 (02:21→23:27)
--- NOTE | 2019-08-30 02:21 | NUR ---
Morphine/Zofran Patient stated that she is still in pain and she feels nauseous. Provided patient with morphine and zofran prn. Patient tolerated well. Will continue to monitor.
[2019-08-30] MEDS: ONDANSETRON HCL 4 MG/2 ML VIAL IVP PRN (02:22)
--- NOTE | 2019-08-30 05:00 | NUR ---
Linens changed Changed patient's chucks, linens, and gown.
[2019-08-30] MEDS: PIPERACILLIN/TAZO 2.25G/DEX-IS 50 ML IV SCH ×2 (05:08→13:05)
--- NOTE | 2019-08-30 05:31 | NUR ---
MD Rounds Dr. Gorves came in to see patient. Informed the doctor that patient's mom, Kylee, would like to speak to him Her wishes are that she wants her daughter to be in [facility]. New orders received. Dr. Groves stated it is too early to call patient's mom but he honors her wishes and said we can send patient to [facility] once she is medically cleared. put in the order.
--- NOTE | 2019-08-30 06:26 | NUR ---
Aunt Called Patient's aunt, Chelita, called asking for an update. Provided update for aunt.
[2019-08-30 06:31] LABS: BASOPHILS % (AUTO) 0.3 % (0.0-2.0); EOSINOPHILS % (AUTO) 0.1 % (0.0-4.0); HEMATOCRIT 30.3 % (36-48); LYMPHOCYTES # (AUTO) 1.6 K/uL (1.0-5.5); LYMPHOCYTES % (AUTO) 11.1 % (20.5-51.5); MEAN CORPUSCULAR HEMOGLOBIN 31 pg (27-31); MEAN CORPUSCULAR HGB CONC 33 % (32-36); MEAN CORPUSCULAR VOLUME 95 fL (79.0-98.0); MONOCYTES # (AUTO) 0.3 K/uL (0.0-1.0); NEUTROPHILS # (AUTO) 12.4 K/uL (1.8-7.7); NEUTROPHILS % (AUTO) 86.5 % (40.0-70.0); PLATELET COUNT (AUTO) 112 K/uL (130-430); RED BLOOD CELL COUNT(AUTO) 3.19 MIL/uL (4.2-6.2); WHITE BLOOD COUNT (AUTO) 14.4 K/uL (4.5-11.0)
--- NOTE | 2019-08-30 07:02 | NUR ---
Closing Note Endorsed report to AM nurse using SBAR approach.
--- NOTE | 2019-08-30 07:30 | NUR ---
Opening Notes Pt received from night RN using SBAR. Pt resting in bed with eyes closed, pt is easily awaken to verbal stimuli. Bed is in lowest position with call light within reach. No complaints of pain or acute distress at this time.
[2019-08-30] MEDS: PANTOPRAZOLE SODIUM 40 MG/VIAL (PROTONIX) IVP SCH ×2 (07:53→21:11)
[2019-08-30] MEDS: ASCORBIC ACID 500 MG TABLET NG SCH ×2 (07:53→21:11)
[2019-08-30] MEDS: MAGNESIUM OXIDE 400 MG TABLET NG SCH ×2 (07:53→21:11)
[2019-08-30] MEDS: CALCIUM CARBONATE 500 MG/ TAB.CHEW PO SCH ×4 (07:53→21:00)
[2019-08-30] MEDS: CHOLECALCIFEROL (VITAMIN D3) 2,000 UNIT TABLET PO SCH ×2 (07:53→21:10)
[2019-08-30] MEDS: QUEtiapine FUMARATE 25 MG TABLET PO SCH ×4 (07:54→21:11)
[2019-08-30] MEDS: busPIRone HCL 5 MG TABLET PO SCH ×2 (07:54→21:11)
[2019-08-30 08:01] LABS: ALBUMIN 1.4 g/dL (3.4-4.8); CALCIUM 7.2 mg/dL (8.4-11.0); CREATININE 0.47 mg/dL (0.55-1.30); PHOSPHORUS 3.2 mg/dL (2.7-4.5); POTASSIUM 3.4 mmol/L (3.5-5.1); TOTAL BILIRUBIN 0.4 mg/dL (0.0-1.0)
[2019-08-30] MEDS: guaiFENesin 200 MG/10 ML UDC PO SCH ×4 (08:16→21:00)
--- NOTE | 2019-08-30 08:25 | NUR ---
Family Pt requested to speak to her mom, Kylee called and transferred into pts room.
[2019-08-30 09:11] LABS: TOTAL IRON BIND. CAPACITY 171 ug/dL (250-450)
--- NOTE | 2019-08-30 12:12 | NUR ---
Resting Pt resting no complaints of pain or distress at this time
[2019-08-30] MEDS: HYDROCORTISONE 10 MG TABLET (CORTEF) PO SCH (13:05)
[2019-08-30] MEDS ORDERED: MAGNESIUM OXIDE 400 MG TABLET PO ONE (15:00)
[2019-08-30] MEDS ORDERED: busPIRone HCL 5 MG TABLET PO ONE (15:00)
--- NOTE | 2019-08-30 15:43 | NUR ---
MD Dr. Thompson spoke to pts mother Kylee and provided update and pts care plan. All questions answered at this time.
[2019-08-30] MEDS: POTASSIUM CHLORIDE 20 MEQ TAB.PRT.SR PO ONE ×2 (16:03→16:15)
[2019-08-30] MEDS: LR 1,000 ML IV SCH (16:03)
--- NOTE | 2019-08-30 16:16 | NUR ---
Medication Pt refused to take K-Dur 20MEQ tab x 2. Stated that its "too chalky" and would make pt vomit. Pt explained benefit of medication.
--- NOTE | 2019-08-30 17:28 | NUR ---
CT Pt off unit to CT, connected to transportation monitor and oxygen tank.
--- NOTE | 2019-08-30 18:45 | NUR ---
Opening Note patient brought to room 104B via gurney, received bedside SBAR report from endorsing RN, patient resting in bed, tele monitor in place, IV fluids infusing well to right IJ central line, no acute distress noted, patient reports pain is controlled, provided patient with telephone to call mom, room close to nurses station, educated patient on use of call light and asked to call for assistance, patient verbalized understanding, call light in reach, bed in low and locked position, bed alarm on.
--- NOTE | 2019-08-30 18:45 | NUR ---
Transferred Pt transferred to TELE 104-B connected to transport monitor and oxygen tank. Report given to Aspen SOTO.
--- NOTE | 2019-08-30 18:52 | NUR ---
PAGED DR. BARRY DIALED: [phone] SPOKE TO: MELISSA
--- NOTE | 2019-08-30 19:10 | NUR ---
Closing Note SBAR report given to receiving RN, patient resting in bed, respirations even and unlabored on 2L nasal cannula, no acute distress noted, room close to nurses station, educated patient on use of call light and asked to call for assistance, patient verbalized understanding, call light in reach, bed in low and locked position, bed alarm on, care endorsed to shift supervisor rn RN.
--- NOTE | 2019-08-30 19:20 | NUR ---
Opening note Received patient awake, AOx4, resting in bed in semi-claudio's. No s/sx of distress. She was talking on phone. She has IVF infusing via RISerena, SARIAH on 2L. Bed is locked in lowest position, side rails up 3x, bed alarm on and call light w/in reach. Updated board.
[2019-08-30] MEDS ORDERED: KCL 40 mEq in 100 mL (PREMIX) 100 ML IV ONE (20:00)
--- NOTE | 2019-08-30 20:35 | NUR ---
Bed side commode Patient assisted to bed side commode. She had a loose, watery bowel movement, orange in color-blood tinged. She was assisted to bed. Safety precautions in place and call light w/in reach.
[2019-08-30] MEDS: MAGNESIUM OXIDE 400 MG TABLET PO SCH (21:00)
[2019-08-30] MEDS: MIRTAZAPINE 15 MG TABLET PO SCH (21:10)
--- NOTE | 2019-08-30 21:12 | NUR ---
Medications Scheduled medications given. Patient refused two meds; Robitussin and tums and took the rest of meds. She swallowed w/out difficulty. Educated on side effects e.g protonix, Cheko-roberto and she verbalized understanding.
[2019-08-30] MEDS: SILVER SULFADIAZINE 1%, 25 GM TOPICAL CREAM (SSD) TP SCH (23:26)
--- NOTE | 2019-08-30 23:27 | NUR ---
Morphine for pain Patient reporting severe pain to upper back, 11/09. Morphine for severed pain given as ordered. K-rider infusing and patient tolerating, no report of burning. Will continue to monitor.
[2019-08-31 00:05] VITALS: BP_SYST 113
--- NOTE | 2019-08-31 00:05 | NUR ---
V/S V/S taken and stable, pain med working and pain decreasing, no further needs.
[2019-08-31] MEDS: MORPHINE 2 MG/ML INJ. SYRINGE IVP PRN ×4 (05:29→20:07)
--- NOTE | 2019-08-31 05:29 | NUR ---
OOB/ c/o pain patient coughing, refused Robitussin. She spits white secretions in oral tray. She was assisted to bedside commode, voided & had watery bowel movement. Reporting severe pain to chest, which she reports increases with breathing/coughing. She returned to bed, oxygen back on and V/S taken B/P 130/77 HR 61 spO2 91%, oxygen increased to 3L. fire management technician reports patient is mechelle, HR 47. Gave Morphine for pain w/ will continue to monitor.
[2019-08-31 05:30] VITALS: BP_SYST 130
[2019-08-31] MEDS: LR 1,000 ML IV SCH ×2 (05:52→22:01)
[2019-08-31] MEDS: ONDANSETRON HCL 4 MG/2 ML VIAL IVP PRN (05:53)
--- NOTE | 2019-08-31 06:00 | NUR ---
reassess Patient reports pain has decreased to 6/10. She requested Seroquel and I informed dose is not due, she requested breathing treatment and RT was called for breathing treatment.
--- NOTE | 2019-08-31 07:10 | NUR ---
closing note Endorsed report, patient stable
--- NOTE | 2019-08-31 07:33 | NUR ---
Mary ortiz Patient tolerated, did not discomfort or burning during infusion. Addendum: 08/31/19 at 0741 by Afua Shearer RN This time is incorrect, complete at 4320
[2019-08-31] MEDS: QUEtiapine FUMARATE 25 MG TABLET PO SCH ×4 (08:01→22:00)
[2019-08-31] MEDS: busPIRone HCL 5 MG TABLET PO SCH ×3 (08:01→22:00)
[2019-08-31] MEDS: ASCORBIC ACID 500 MG TABLET NG SCH ×2 (08:02→22:00)
[2019-08-31] MEDS: CHOLECALCIFEROL (VITAMIN D3) 2,000 UNIT TABLET PO SCH ×2 (08:02→21:59)
[2019-08-31] MEDS: CALCIUM CARBONATE 500 MG/ TAB.CHEW PO SCH ×4 (08:02→21:00)
[2019-08-31] MEDS: PANTOPRAZOLE SODIUM 40 MG/VIAL (PROTONIX) IVP SCH ×2 (08:02→21:59)
[2019-08-31] MEDS: MAGNESIUM OXIDE 400 MG TABLET PO SCH ×2 (08:02→21:00)
[2019-08-31] MEDS: MAGNESIUM OXIDE 400 MG TABLET NG SCH ×2 (08:03→22:00)
[2019-08-31] MEDS: guaiFENesin 200 MG/10 ML UDC PO SCH ×4 (08:03→21:00)
[2019-08-31 08:08] VITALS: BP_SYST 119
--- NOTE | 2019-08-31 08:12 | NUR ---
Initial notes: Patient is awake and alert, she is not showing any signs of distress at this time. She is not in any pain. Her central line is patent and has good blood return. She had labs drawn this hoop riveting machine operator - I will follow. Patient has a left cheek abrasion open to air. I got a full report from the category development manager nurse. Patients bed is low, locked, 2 side rails up and call light is within reach. Helio SOTO
[2019-08-31] MEDS: SILVER SULFADIAZINE 1%, 25 GM TOPICAL CREAM (SSD) TP SCH ×2 (09:38→22:01)
--- NOTE | 2019-08-31 09:58 | NUR ---
Patient is awake and alert, pain meds were given to patient. She was helped to the bedside commode. She is not under any distress at this time. Patients bed is low, locked, 2 side rails up and call light is within reach. Helio SOTO
--- NOTE | 2019-08-31 11:15 | NUR ---
Nutrition F/U Admitting Diagnosis: Acute respiratory failure Medical History Comment: PMHx includes polysubstance abuse per physician notes. Pt was found w/: respiratory failure, septic shock, PNA, transaminitis, electrolyte disturbance, and severe protein malnutrition per physician notes. 08/27 CXR: Persistent right basilar infiltrate. Increased left basilar infiltrate. Subjective Information Per EMR review, pt is out of ICU and off steroids, continues to received abx therapy. Pt has been successfully intubated and is pending psych eval. Last BM 08/30 x4, abd is soft and nondistended, on mechanical soft diet since yesterday 08/29. Previously on full liquid x 2 days. Remeron was also started yesterday. PO intake continues to be poor and addition of ONS is warranted. Current Diet Order/Nutrition Support: Mechanical soft diet x 1 day Pertinent Medications: Protonix, Seroquel, Mag-ox, VIT C, VIT D, tums, Reglan, Remeron. Pertinent Labs (08/29) WBC: 14.4 H (trending down), Na 146 H, K: 3.4 L, BUN: 9 WNL (improved), BG 97 WNL, CRE: 0.47 L, *COVID-19 PCR Negative x 2, (08/23, 08/28) Skin Integrity Comment: Kunal Score: 15 RN notes +wound to left cheek. Non-pitting generalized edema. Current % PO Poor (38% average of 2 meals recorded, incomplete PO intake records) NEW Estimated Energy Expenditure (kcals/day) 4849-7129 kcal/day (30-35 kcal/kg CBW for sepsis) Estimated Protein Required (g/day) 75-100g/day (1.5-2g/kg based on CBW for critical illness, sepsis) NEW Estimated Fluid Required (l/day) 1.5-1.8 L/day (1ml/calorie for maintenance) Problem/Etiology/Signs/Symptoms Increased nutrient needs r/t increased metabolic demands AEB critical illness sepsis (*ongoing) Expected Outcomes/Goals Monitor appetite and intake w/ goal of pt meeting at least 75% of estimated nutritional needs, labs trending WNL, normal GI function, and skin integrity/wt maintenance Dietitian Recommendations *Recommend Ensure Enlive BID. (ONS will provide 700 kcal and 40gm protein daily) *Continue Mechanical soft diet per MD orders. *Encourage pt to increase PO intake. Follow Up High Risk: F/U in 2-3days
--- NOTE | 2019-08-31 11:25 | NUR ---
Dietitian Recommendations *Recommend Ensure Enlive BID. (ONS will provide 700 kcal and 40gm protein daily) *Continue Mechanical soft diet per MD orders. *Encourage pt to increase PO intake. Please see Nutrition F/U note for details. EDUIN, RD
--- NOTE | 2019-08-31 12:01 | NUR ---
Patient is awake and alert, she is eating her meal, she presents no new complaints. She is not showing any signs of distress. Patients bed is low, locked, 2 side rails up and call light is within reach. Helio SOTO
[2019-08-31 12:17] VITALS: BP_SYST 134
--- NOTE | 2019-08-31 14:12 | NUR ---
Patient is awake and alert, she presents no new complaints. She is not showing any signs of distress. copy manager came to see patient, patient and family are requesting to go to [facility]. Patients bed is low, locked, 2 side rails up and call light is within reach. Helio SOTO
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
--- NOTE | 2019-08-31 16:00 | NUR ---
Patient is sleeping, she is not in any distress. IV meds were hung and medications given.Patients bed is low, locked, 2 side rails up and call light is within reach. Helio SOTO
[2019-08-31 16:27] VITALS: BP_SYST 130
--- NOTE | 2019-08-31 17:51 | NUR ---
Patient is in bed sleeping, her central line is ordered to be discontinued and a new IV line will be started. Waiting for patient to wake up. approved for patient to go to [facility] if they allow her to have IV meds - will follow. She is not showing any signs of distress. Patients bed is low, locked, 2 side rails up and call light is within reach. Helio SOTO
--- NOTE | 2019-08-31 17:54 | NUR ---
[facility] update: Called [facility] to see if patient can go with IV meds, per facility they cannot be with IV meds. Patient will have to wait for 2 weeks until she finishes her IV regimen per . Helio SOTO
--- NOTE | 2019-08-31 18:32 | NUR ---
Closing notes: Patient is awake and alert, she is not showing any signs of distress at this time. She is not in any pain. Her central line was removed today and a new IV started. . Patient has a left cheek abrasion open to air. She will start 2 weeks of antibiotics, once completed patient will go to [facility] per patient's request. All of patient's needs were met during the shift. I will give a full report to editor greeting card nurse. Patients bed is low, locked, 2 side rails up and call light is within reach. Helio SOTO
--- NOTE | 2019-08-31 19:15 | NUR ---
Opening note Received patient awake, AOx4, resting in bed. No s/sx of distress, nonlabored breahing on 2L NC. She was talking on phone. She has IVF infusing via IV to LAC. BSC is at bedside. Dinner tray has not been touched, she rports she does not have an appetitie. VSS. Bed is locked in lowest position, side rails up 2x, bed alarm on and call light w/in reach. Updated board.
--- NOTE | 2019-08-31 19:57 | NUR ---
Bed alarm / OOB Patient OOB for use of BSC, she transferred self and when finished she transferred self to chair at bedside. Bed linen was changed, while she rested in chair.
[2019-08-31 20:00] VITALS: BP_SYST 120
--- NOTE | 2019-08-31 20:10 | NUR ---
c/o pain Patient reporting chest pain, this is not new pain, it is the same type of pain that she has been getting. She removed oxygen and it has been connected again. Administered Morphine for severe pain, will monitor.
[2019-08-31] MEDS: IPRATROPIUM/ALBUTEROL SULFATE 3 ML AMPUL.NEB (DUONEB) INH PRN (20:33)
[2019-08-31] MEDS: MIRTAZAPINE 15 MG TABLET PO SCH (22:00)
--- NOTE | 2019-08-31 22:00 | NUR ---
meds Scheduled meds given, patient educated on indication/side effects and she verbalized understanding.
--- NOTE | 2019-09-01 00:30 | NUR ---
rounds Awakened for v/s. She got up for use of the BSC; voided, no bowel movement. Returned to bed.
[2019-09-01] MEDS: LR 1,000 ML IV SCH (01:03)
[2019-09-01] MEDS: MORPHINE 2 MG/ML INJ. SYRINGE IVP PRN ×4 (01:09→20:22)
--- NOTE | 2019-09-01 01:19 | NUR ---
IVF / Pain med Patient OOB for use of BSC, voided and returned to bed. Requesting pain med for chest pain 09/08. Morphine given. Hung new bag of IVF: LR and infusing at 70 ml/hr.
[2019-09-01 01:28] VITALS: BP_SYST 124
--- NOTE | 2019-09-01 02:15 | NUR ---
resting Patient is resting in bed, with eyes closed. Symmetrical rise and fall of chest, nonlabored breathing.
--- NOTE | 2019-09-01 04:10 | NUR ---
Resting Patient is resting in bed, with eyes closed. Symmetrical rise and fall of chest, nonlabored breathing, IVF infusing well.
--- NOTE | 2019-09-01 05:50 | NUR ---
pain med / lab Patient requesting pain med for chest pain 10/09. Morphine given. soil science technical officer at bedside for blood draw.
--- NOTE | 2019-09-01 07:08 | NUR ---
closing note Patient resting in bed w/eyes closed. No s/sx of distress, nonlabored breahing on 2L NC. She has IVF infusing via IV to LAC. BSC is at bedside. Safety precautions maintained and call light w/in reach. Needs met throughout shift, will endorse to day shift nurse.
[2019-09-01 07:18] LABS: BASOPHILS % (AUTO) 0.3 % (0.0-2.0); EOSINOPHILS # (AUTO) 0.1 K/uL (0.0-0.4); EOSINOPHILS % (AUTO) 0.8 % (0.0-4.0); HEMATOCRIT 34.4 % (36-48); HEMOGLOBIN 11.4 g/dL (12.0-16.0); LYMPHOCYTES # (AUTO) 3.3 K/uL (1.0-5.5); LYMPHOCYTES % (AUTO) 23.1 % (20.5-51.5); MEAN CORPUSCULAR HEMOGLOBIN 32 pg (27-31); MEAN CORPUSCULAR HGB CONC 33 % (32-36); MEAN CORPUSCULAR VOLUME 95 fL (79.0-98.0); MONOCYTES # (AUTO) 0.6 K/uL (0.0-1.0); NEUTROPHILS # (AUTO) 10.3 K/uL (1.8-7.7); NEUTROPHILS % (AUTO) 71.8 % (40.0-70.0); PLATELET COUNT (AUTO) 236 K/uL (130-430); RED BLOOD CELL COUNT(AUTO) 3.63 MIL/uL (4.2-6.2); WHITE BLOOD COUNT (AUTO) 14.4 K/uL (4.5-11.0)
[2019-09-01 07:49] LABS: ALBUMIN 1.8 g/dL (3.4-4.8); CALCIUM 8.2 mg/dL (8.4-11.0); CREATININE 0.48 mg/dL (0.55-1.30); POTASSIUM 3.1 mmol/L (3.5-5.1); TOTAL BILIRUBIN 0.4 mg/dL (0.0-1.0)
--- NOTE | 2019-09-01 07:52 | NUR ---
Initial notes: Patient is awake and alert, she is not showing any signs of distress at this time. Her IV line is patent and running LR at 70ml/hr. Patient has a left cheek abrasion open to air. She will start 2 weeks of antibiotics, once completed patient will go to [facility] per patient's request. I got full report from the shift production supervisor nurse. Patients bed is low, locked, 2 side rails up and call light is within reach. Helio SOTO
[2019-09-01] MEDS: busPIRone HCL 5 MG TABLET PO SCH ×3 (08:08→21:39)
[2019-09-01] MEDS: MAGNESIUM OXIDE 400 MG TABLET PO SCH ×2 (08:08→21:40)
[2019-09-01] MEDS: PANTOPRAZOLE SODIUM 40 MG/VIAL (PROTONIX) IVP SCH ×2 (08:09→21:40)
[2019-09-01] MEDS: ASCORBIC ACID 500 MG TABLET NG SCH (08:09)
[2019-09-01] MEDS: CHOLECALCIFEROL (VITAMIN D3) 2,000 UNIT TABLET PO SCH ×2 (08:09→21:40)
[2019-09-01] MEDS: QUEtiapine FUMARATE 25 MG TABLET PO SCH ×4 (08:09→21:40)
[2019-09-01] MEDS: CALCIUM CARBONATE 500 MG/ TAB.CHEW PO SCH ×2 (08:12→12:30)
[2019-09-01] MEDS: guaiFENesin 200 MG/10 ML UDC PO SCH ×4 (08:13→21:00)
[2019-09-01] MEDS: MAGNESIUM OXIDE 400 MG TABLET NG SCH (08:13)
[2019-09-01] MEDS: SILVER SULFADIAZINE 1%, 25 GM TOPICAL CREAM (SSD) TP SCH ×2 (08:14→21:58)
--- NOTE | 2019-09-01 09:00 | NUR ---
Suicide assessment: Patient is in bed, resting. She denies any harm to herself or others, she states she does not have any plans of hurting herself or others upon assessment. I will continue to monitor. Helio SOTO
[2019-09-01 09:24] VITALS: BP_SYST 126
--- NOTE | 2019-09-01 10:18 | NUR ---
Patient is asleep and not in any signs of distress. Patients bed is low, locked, 2 side rails up and call light is within reach. Helio SOTO
--- NOTE | 2019-09-01 12:01 | NUR ---
DC Barriers: elevated WBC 14.4 , needs dr. Rider reevaluation before discharge.
--- NOTE | 2019-09-01 12:24 | NUR ---
Patient is awake and alert, watching TV. She is not hungry and asked for apple juice. Will continue to monitor patient. Bed is low, locked, 2 side rails up and call light is within reach. Helio SOTO
[2019-09-01 12:31] VITALS: BP_SYST 119
--- NOTE | 2019-09-01 14:15 | NUR ---
Patient is sleeping, she does not present any new complaints or signs of distress. She was downgraded to MS. Her tele monitor was removed. Her IV LR fluid was discontinued as well. She was given potassium replacement. Bed is low, locked, 2 side rails up and call light is within reach. Helio SOTO
[2019-09-01] MEDS ORDERED: FUROSEMIDE 20 MG/2 ML VIAL IVP ONE (15:00)
[2019-09-01] MEDS ORDERED: POTASSIUM CHLORIDE 20 MEQ TAB.PRT.SR PO ONE (15:15)
--- NOTE | 2019-09-01 16:18 | NUR ---
Patient is sleeping and not showing any signs of distress at this time. Bed is low, locked, 2 side rails up and call light is within reach. Helio SOTO
[2019-09-01 17:26] VITALS: BP_SYST 119
--- NOTE | 2019-09-01 18:11 | NUR ---
Patient is awake and alert, sitting on bed. She did not have an appetite but asked for a couple of apple juices. She was given medication and IV tubing removed from room as fluids were discontinued. She asked if she could shower but was advised to wait until she can walk more stable. She verbalized comprehension. Bed is low, locked, 2 side rails up and call light is within reach. Helio SOTO
--- NOTE | 2019-09-01 18:48 | NUR ---
Closing notes: Patient has been sleeping most of shift due to meds. She takes medications effortlessly. She is compliant, was assessed for suicidal thoughts, she mentioned that she does not have any intention to harm herself or others. Her IV fluids were discontinued and she has a patent IV line. She was downgraded to MS. She mentioned she would like to shower soon but was educated on the risk of showing if her gait was not steady. Mother called and asked to be kept up to date of any changes or potential discharges. Her name is Janelle Chen [phone]. Patient still on rocephin for a few more days, then she can be discharged to [facility]. All of patients need were met. I will give report to restaurant shift supervisor nurse. Bed is low, locked, 2 side rails up and call light is within reach. Helio SOTO
--- NOTE | 2019-09-01 19:40 | NUR ---
CHANGE OF SHIFT; pt. checked, starts crying, wants to go home, c/o back and chest pain. pt. sliding down the bed. pt. instructed on moving from side to side and deep breathing. call light at bedside. no distress.
[2019-09-01 19:45] VITALS: BP_SYST 126
[2019-09-01] MEDS: ACETAMINOPHEN 650 MG/20.3 ML UDC PO PRN (20:22)
--- NOTE | 2019-09-01 20:25 | NUR ---
NOTES: pt. medicated with IV Morphine for c/o back and chest pain. VS checked. Temp 100.2, Tylenol liquid given. pt. been drinking apple juice. on room air, HOB elevated. pt. able to pull herself up, deep breathing instructed. IV lock on left forearm. left cheek with abrasion, open to air. been using bedside commode. pt. needs attended. pt. room close to nurses station.
[2019-09-01] MEDS: MIRTAZAPINE 15 MG TABLET PO SCH (21:39)
--- NOTE | 2019-09-01 21:45 | NUR ---
NOTES: schedule medications given and tolerated well. pt. needs attended. been spitting her saliva frequently, basin at bedside. pt. aske to reposition self. keep HOB elevated. instructed on deep breathing. call light at bedside.
[2019-09-01] MEDS: POTASSIUM CHLORIDE 20 MEQ TAB.PRT.SR PO SCH (21:49)
--- NOTE | 2019-09-01 23:00 | NUR ---
NOTES: pt. seems to be more calmer, not crying. condition observed. pain is less, feeling better. call light at bedside.
--- NOTE | 2019-09-02 00:30 | NUR ---
NOTES: pt. been resting. no distress, been voiding large amts. of urine, had 2 BM. repositioned self. call light at bedside.
[2019-09-02 01:12] VITALS: BP_SYST 127
[2019-09-02] MEDS: MORPHINE 2 MG/ML INJ. SYRINGE IVP PRN ×6 (02:59→22:23)
--- NOTE | 2019-09-02 03:00 | NUR ---
NOTES: pt. called and c/o back and chest pain, medicated with IV Morphine as ordered. repositioned self. emptied her commode. IV lock patent, flushing good. call light at bedside.
--- NOTE | 2019-09-02 04:30 | NUR ---
NOTES: pt. resting when checked, asked for apple juice. needs attended.
--- NOTE | 2019-09-02 05:30 | NUR ---
NOTES: continue to monitor. condition observed.
--- NOTE | 2019-09-02 06:44 | NUR ---
CLOSING NOTES; pt. still asleep. no further complaints. for further care and assistance. call light at bedside. IV lock on left arm. will endorse to incoming shift.
[2019-09-02 07:14] LABS: BASOPHILS # (AUTO) 0.1 K/uL (0.0-0.2); BASOPHILS % (AUTO) 0.4 % (0.0-2.0); EOSINOPHILS # (AUTO) 0.2 K/uL (0.0-0.4); EOSINOPHILS % (AUTO) 1.7 % (0.0-4.0); HEMATOCRIT 32.7 % (36-48); HEMOGLOBIN 10.9 g/dL (12.0-16.0); LYMPHOCYTES # (AUTO) 2.9 K/uL (1.0-5.5); LYMPHOCYTES % (AUTO) 23.2 % (20.5-51.5); MEAN CORPUSCULAR HEMOGLOBIN 32 pg (27-31); MEAN CORPUSCULAR HGB CONC 33 % (32-36); MEAN CORPUSCULAR VOLUME 96 fL (79.0-98.0); MONOCYTES # (AUTO) 0.7 K/uL (0.0-1.0); MONOCYTES % (AUTO) 5.7 % (1.7-9.3); NEUTROPHILS # (AUTO) 8.5 K/uL (1.8-7.7); PLATELET COUNT (AUTO) 236 K/uL (130-430); RED BLOOD CELL COUNT(AUTO) 3.42 MIL/uL (4.2-6.2); WHITE BLOOD COUNT (AUTO) 12.3 K/uL (4.5-11.0)
[2019-09-02 07:37] LABS: ALBUMIN 1.8 g/dL (3.4-4.8); CALCIUM 8.2 mg/dL (8.4-11.0); CREATININE 0.6 mg/dL (0.55-1.30); POTASSIUM 3.9 mmol/L (3.5-5.1); TOTAL BILIRUBIN 0.3 mg/dL (0.0-1.0)
--- NOTE | 2019-09-02 08:00 | NUR ---
Opening Notes Pt received from night nurse using SBAR. Pt resting in bed. Patient is awake and oriented x4. Having pain on the back and chest. Productive cough occ, No respiratory distress. Sa O2 is 94 % RA. Pain medication was given by caustic cresylate shift superintendent nurse. Call light within reach, bed in lowest position. will continue to monitor.
[2019-09-02] MEDS: SILVER SULFADIAZINE 1%, 25 GM TOPICAL CREAM (SSD) TP SCH ×2 (09:00→21:24)
[2019-09-02] MEDS: busPIRone HCL 5 MG TABLET PO SCH ×3 (09:00→21:23)
[2019-09-02] MEDS: CHOLECALCIFEROL (VITAMIN D3) 2,000 UNIT TABLET PO SCH ×3 (09:02→21:24)
[2019-09-02] MEDS: PANTOPRAZOLE SODIUM 40 MG/VIAL (PROTONIX) IVP SCH ×2 (09:02→21:24)
[2019-09-02] MEDS: MAGNESIUM OXIDE 400 MG TABLET PO SCH ×2 (09:02→21:23)
[2019-09-02] MEDS: POTASSIUM CHLORIDE 20 MEQ TAB.PRT.SR PO SCH ×3 (09:02→21:22)
[2019-09-02] MEDS: guaiFENesin 200 MG/10 ML UDC PO SCH ×4 (09:02→21:27)
[2019-09-02] MEDS: QUEtiapine FUMARATE 25 MG TABLET PO SCH ×4 (09:02→21:22)
[2019-09-02] MEDS: ACETAMINOPHEN 650 MG/20.3 ML UDC PO PRN ×2 (09:03→21:28)
[2019-09-02 11:27] VITALS: BP_SYST 127
--- NOTE | 2019-09-02 12:00 | NUR ---
Note Patient is sitting on chair,calm down. Having pain on back. BP is 111/ 65 mmhg. MS 2 mg was given. Will monitor for increasing pain.
[2019-09-02 15:47] VITALS: BP_SYST 107
[2019-09-02 16:00] VITALS: BP_SYST 107
--- NOTE | 2019-09-02 18:44 | NUR ---
Nutrition F/U Admitting Diagnosis: Acute respiratory failure Medical History Comment: PMHx includes polysubstance abuse per physician notes. Pt was found w/: respiratory failure, septic shock, PNA, transaminitis, electrolyte disturbance, and severe protein malnutrition per physician notes. 08/27 CXR: Persistent right basilar infiltrate. Increased left basilar infiltrate. 08/29: CT of the Chest w/o Contrast: small amount of ascites, anasarca Subjective Information Per EMR review, pt is out of ICU and now on 2L NC for supplemental oxygen support. Per PO records, pt refused all meals yesterday except breakfast which was consumed at 15%. Per RN notes, pt was asleep most of the day yesterday d/t meds. Per EMR, diet was advanced to Regular today and PO intake appears to be improving with 50% eaten at breakfast and lunch. CT of the Chest showed small amount of ascites and anasarca, noted pt was given IV Lasix x1 and IV fluids were d/c. 1 BM on 09/01, abd soft and nondistended. Pt is awaiting psychiatric evaluation. Current Diet Order/Nutrition Support: Regular diet x 0 day %PO intake: 23% avg x 9 meals Pertinent Medications: Protonix, Seroquel, Mag-ox, VIT C, VIT D, tums, Reglan, Remeron. Pertinent Labs COVID-19 PCR Negative x 2, (08/23, 08/28) Skin Integrity Comment: Kunal Score: 19 RN notes +wound to left cheek. +1 Non-pitting generalized edema. Current % PO Poor (38% average of 2 meals recorded, incomplete PO intake records) NEW Estimated Energy Expenditure (kcals/day) 3042-5469 kcal/day (30-35 kcal/kg CBW for sepsis) Estimated Protein Required (g/day) 75-100g/day (1.5-2g/kg based on CBW for critical illness, sepsis) NEW Estimated Fluid Required (l/day) 1.5-1.8 L/day (1ml/calorie for maintenance) Problem/Etiology/Signs/Symptoms Increased nutrient needs r/t increased metabolic demands AEB critical illness sepsis (*ongoing) Expected Outcomes/Goals Monitor appetite and intake w/ goal of pt meeting at least 75% of estimated nutritional needs, labs trending WNL, normal GI function, and skin integrity/wt maintenance Dietitian Recommendations *Continue Regular diet *Snacks BID *Encourage pt to increase PO intake. Follow Up High Risk: F/U in 2-3days
--- NOTE | 2019-09-02 18:47 | NUR ---
Dietitian Recommendations *Continue Regular diet *Snacks BID *Encourage pt to increase PO intake. Please see Nutrition F/U for further details. LT, RD
--- NOTE | 2019-09-02 18:52 | NUR ---
closing note Patient resting in bed w/eyes closed. No s/sx of distress, nonlabored breathing.BSC is at bedside. Safety precautions maintained and call light w/in reach. Needs met throughout shift, will endorse to shift supervisor rn nurse.
--- NOTE | 2019-09-02 19:25 | NUR ---
OPENING NOTE: Patient asleep at this time. No s/s of acute distress noted. Breathing is even and unlabored. IV site is patent without s/s of infection, infiltration, or infection. Bed locked in lowest position, bed alarm on, call light with patient. No further needs at this time. Will continue to monitor.
[2019-09-02 20:00] VITALS: BP_SYST 108
--- NOTE | 2019-09-02 21:10 | NUR ---
PATIENT REFUSED PO POTASSIUM/SLIGHT TEMPERATURE: Patient has slight temperature of 100.6F. Patient given PRN Tylonel for fever. Patient refused Potassium pill during med pass. She stated it is too big for her to try and swallow. Asked patient if crushed if she would take it and she stated, "no I do not want it right now." Patient educated on risks and benefits but still refused med. Potassium level is 3.9. Will endorse to daysctft nurse to speak with MD about possibly changing route. Patient tolerated all other meds well. No further needs at this time. All safety measures in place. Call light with patient. Patient educated on use and importance of call light. Patient verbalized understanding and demonstrated proper use. Will continue to monitor patient and effectiveness of medication.
[2019-09-02] MEDS: MIRTAZAPINE 15 MG TABLET PO SCH (21:23)
[2019-09-02] MEDS: MULTIVITS,CA,MINERALS/IRON/FA 1 TABLET PO SCH (21:23)
--- NOTE | 2019-09-02 23:49 | NUR ---
ROUNDS: Patient is asleep at this time. No s/s of acute distress noted. Breathing is even and unlabored. All safety measures in place. No further needs at this time. Will continue to monitor.
--- NOTE | 2019-09-02 23:56 | NUR ---
OPENING NOTE: Patient asleep at this time. No s/s of acute distress noted. Breathing is even and unlabored. IV site is patent without s/s of infection, infiltration, or infection. Bed locked in lowest position, bed alarm on, call light with patient. No further needs at this time. Will continue to monitor. Addendum: 09/02/19 at [id number] by Michelle Noriega RN WRONG TIME
--- NOTE | 2019-09-03 01:20 | NUR ---
ROUNDS: Patient asleep at this time. No s/s of acute distress noted. Breathing is even and unlabored. All safety measures in place. Will continue to monitor.
[2019-09-03 02:11] VITALS: BP_SYST 102
--- NOTE | 2019-09-03 03:48 | NUR ---
ROUNDS: Patient asleep at this time. No s/s of acute distress noted. Breathing is even and unlabored. All safety measures in place. Will continue to monitor.
[2019-09-03] MEDS: MORPHINE 2 MG/ML INJ. SYRINGE IVP PRN ×2 (04:41→09:30)
--- NOTE | 2019-09-03 05:00 | NUR ---
PATIENT WITH COMPLAINTS OF PAIN 10/09: Patient with complaints of pain at this time in chest 10/09. PRN medication given. Will continue to monitor.
--- NOTE | 2019-09-03 06:37 | NUR ---
CLOSING NOTE: Patient asleep at this time. No s/s of acute distress noted. Breathing is even and unlabored. IV site is patent without s/s of infection, infiltration, or infection. All safety/fall precautions maintained throughout the shift. All needs met throughout the shift. Will continue to monitor until endorsement of care to dayshift nurse.
[2019-09-03 08:15] VITALS: BP_SYST 121
[2019-09-03] MEDS: QUEtiapine FUMARATE 25 MG TABLET PO SCH ×4 (09:17→20:50)
[2019-09-03] MEDS: PANTOPRAZOLE SODIUM 40 MG/VIAL (PROTONIX) IVP SCH (09:19)
[2019-09-03] MEDS: busPIRone HCL 5 MG TABLET PO SCH ×3 (09:19→20:50)
[2019-09-03] MEDS: MAGNESIUM OXIDE 400 MG TABLET PO SCH ×2 (09:20→20:46)
[2019-09-03] MEDS: POTASSIUM CHLORIDE 20 MEQ TAB.PRT.SR PO SCH ×2 (09:20→20:47)
[2019-09-03] MEDS: guaiFENesin 200 MG/10 ML UDC PO SCH ×4 (09:38→20:52)
[2019-09-03] MEDS: CHOLECALCIFEROL (VITAMIN D3) 2,000 UNIT TABLET PO SCH ×4 (09:39→20:47)
[2019-09-03] MEDS: SILVER SULFADIAZINE 1%, 25 GM TOPICAL CREAM (SSD) TP SCH ×2 (09:45→20:52)
[2019-09-03] MEDS: MULTIVITS,CA,MINERALS/IRON/FA 1 TABLET PO SCH ×2 (09:48→20:49)
[2019-09-03 11:40] VITALS: BP_SYST 109
[2019-09-03 15:30] VITALS: BP_SYST 101
[2019-09-03] MEDS: KETOROLAC TROMETHAMINE 15 MG VIAL IVP PRN ×2 (15:56→22:54)
--- NOTE | 2019-09-03 19:50 | NUR ---
OPENING NOTES Received report CHARLES Crockett. Patient resting in bed, AAOx4, breathing evenly and non labored on room air. Patient has an IV on the left forearm 22g SL, flushed, patent and benign, no s/s of infection or infiltration noted at this time. Educated patient on plan of care, fall/safety/aspiration precautions, call light system, patient stated understanding with return demonstration. Bed is locked and at lowest position, will continue to monitor.
[2019-09-03 20:45] VITALS: BP_SYST 100
[2019-09-03] MEDS: PANTOPRAZOLE SODIUM 40 MG TAB PO SCH (20:47)
[2019-09-03] MEDS: MIRTAZAPINE 15 MG TABLET PO SCH (20:49)
[2019-09-03] MEDS: ACETAMINOPHEN 650 MG/20.3 ML UDC PO PRN (20:53)
--- NOTE | 2019-09-03 20:53 | NUR ---
MEDICATIONS/ROUNDS Patient resting in bed, awake, breathing evenly and non labored on room air. Patient complained of mild pain, educated patient on pain medication, nonpharmacological interventions, patient stated understanding. Educated patient on due medications, patient stated understanding. Administered due medications and Tylenol, patient tolerated them well. Wound care on left cheek done, patient tolerated it well. Patient asked for some snacks which was provided. No other needs at this time. Fall/safety/aspiration precautions, will continue to monitor.
--- NOTE | 2019-09-03 22:54 | NUR ---
PAIN MEDICATION GIVEN Patient resting in bed, awake, breathing evenly and non labored on room air. Patient complained of moderate pain, educated patient on pain medication, nonpharmacological interventions, patient stated understanding. Administered Toradol, patient tolerated it well. No other needs at this time. Fall/safety/aspiration precautions, will continue to monitor.
[2019-09-03] MEDS ORDERED: LOPERAMIDE HCL 2 MG CAPSULE PO ONE (23:45)
--- NOTE | 2019-09-03 23:50 | NUR ---
MEDICATION GIVEN FOR LOOSE STOOL Patient complained of loose stools x 3 during the whole day, was able to obtain medication order from Dr. Thompson. Educated patient on Imodium, patient stated understanding. Administered medication, patient tolerated it well. No other needs at this time. Fall/safety precautions, will continue to monitor.
[2019-09-04 00:01] VITALS: BP_SYST 102
--- NOTE | 2019-09-04 01:55 | NUR ---
ROUNDS Patient resting in bed, awake, breathing evenly and non labored on room air. Patient complained of being unable to sleep. Offered warm milk and ear plugs, patient agreed and drank the warm milk. No other needs at this time. Fall/safety/aspiration precautions, will continue to monitor.
--- NOTE | 2019-09-04 03:20 | NUR ---
ROUNDS Patient resting in bed, eyes closed, breathing evenly and non labored on room air. No s/s of distress at this time, no other needs at this time. Fall/safety/aspiration precautions, will continue to monitor.
[2019-09-04 04:41] LABS: BASOPHILS # (AUTO) 0.1 K/uL (0.0-0.2); EOSINOPHILS # (AUTO) 0.2 K/uL (0.0-0.4); HEMATOCRIT 35.3 % (36-48); HEMOGLOBIN 11.7 g/dL (12.0-16.0); LYMPHOCYTES # (AUTO) 2.2 K/uL (1.0-5.5); MEAN CORPUSCULAR HEMOGLOBIN 32 pg (27-31); MEAN CORPUSCULAR HGB CONC 33 % (32-36); MEAN CORPUSCULAR VOLUME 96 fL (79.0-98.0); MONOCYTES # (AUTO) 0.7 K/uL (0.0-1.0); MONOCYTES % (AUTO) 7.8 % (1.7-9.3); NEUTROPHILS # (AUTO) 6.3 K/uL (1.8-7.7); NEUTROPHILS % (AUTO) 66.2 % (40.0-70.0); PLATELET COUNT (AUTO) 340 K/uL (130-430); RED CELL DISTRIBUTION WIDTH 15.3 % (9.0-15.0); WHITE BLOOD COUNT (AUTO) 9.5 K/uL (4.5-11.0)
[2019-09-04 05:02] LABS: ALBUMIN 2.2 g/dL (3.4-4.8); CALCIUM 8.6 mg/dL (8.4-11.0); CREATININE 0.65 mg/dL (0.55-1.30); TOTAL BILIRUBIN 0.4 mg/dL (0.0-1.0)
--- NOTE | 2019-09-04 05:45 | NUR ---
ROUNDS Patient resting in bed, awake, breathing evenly and non labored on room air. No s/s of distress at this time, no other needs at this time. Fall/safety/aspiration precautions, will continue to monitor.
--- NOTE | 2019-09-04 06:31 | NUR ---
ROUNDS Patient resting in bed, awake, breathing evenly and non labored on room air. Patient denies any pain at this time, said she "just wants to go home." No s/s of distress at this time, no other needs at this time. Fall/safety/aspiration precautions, will endorse care to morning shift RN.
--- NOTE | 2019-09-04 07:39 | NUR ---
OPENING NOTE RECEIVED BEDSIDE SBAR FROM NIGHT RN, PATIENT IN BED, RESPIRATIONS EVEN, NON LABORED, BED IN LOW AND LOCKED POSITION, CALL LIGHT WITHIN REACH,
[2019-09-04 08:00] VITALS: BP_SYST 112
--- NOTE | 2019-09-04 08:00 | NUR ---
NURSING NOTE PATIENT IN BED, RESPIRATIONS EVEN NON LABORED, BED IN LOW AND LOCKED POSITION, CALL LIGHT WITHIN REACH
[2019-09-04] MEDS: guaiFENesin 200 MG/10 ML UDC PO SCH ×4 (08:37→22:28)
[2019-09-04] MEDS: POTASSIUM CHLORIDE 20 MEQ TAB.PRT.SR PO SCH ×2 (08:38→22:29)
[2019-09-04] MEDS: QUEtiapine FUMARATE 25 MG TABLET PO SCH ×4 (08:38→22:31)
[2019-09-04] MEDS: PANTOPRAZOLE SODIUM 40 MG TAB PO SCH ×2 (08:38→22:29)
[2019-09-04] MEDS: busPIRone HCL 5 MG TABLET PO SCH ×3 (08:38→22:30)
[2019-09-04] MEDS: MULTIVITS,CA,MINERALS/IRON/FA 1 TABLET PO SCH ×2 (08:38→22:30)
[2019-09-04] MEDS: MAGNESIUM OXIDE 400 MG TABLET PO SCH ×2 (08:38→22:29)
[2019-09-04] MEDS: KETOROLAC TROMETHAMINE 15 MG VIAL IVP PRN (08:39)
[2019-09-04] MEDS: CHOLECALCIFEROL (VITAMIN D3) 2,000 UNIT TABLET PO SCH ×3 (08:39→22:29)
--- NOTE | 2019-09-04 09:15 | NUR ---
MD ROUNDS DR. VASQUEZ BEDSIDE EXAMINING PATIENT
[2019-09-04] MEDS: SILVER SULFADIAZINE 1%, 25 GM TOPICAL CREAM (SSD) TP SCH ×2 (09:37→22:31)
--- NOTE | 2019-09-04 09:39 | NUR ---
NURSE NOTE PATIENT HAD DUPLICATE ORDERS FOR VITAMIN D, I GAVE MEDICATION THEN CALLED THE PHARMACY, THEY DISCONTINUED ONE OF THE ORDERS, BUT DISCONTINUED THE ONE THAT WAS GIVEN.
--- NOTE | 2019-09-04 10:31 | NUR ---
NURSE NOTE PATIENT IN BED, RESPIRATIONS EVEN NON LABORED, BED IN LOW AND LOCKED POSITION, CALL LIGHT WITHIN REACH, PATIENT ASKED IF WHEN CAN SHE GO HOME, INFORMED IT IS UP TO THE DR'S TO DISCHARGE PATIENT
[2019-09-04 11:37] VITALS: BP_SYST 102
[2019-09-04 12:06] VITALS: BP_SYST 102
--- NOTE | 2019-09-04 12:30 | NUR ---
nurse note patient in bed, respirations even non labored, bed in low and locked position, call light within reach
--- NOTE | 2019-09-04 13:57 | NUR ---
nurse note patient ambulated to the shower, steady gait, respirations even, non labored, linens changed
--- NOTE | 2019-09-04 15:14 | NUR ---
nurse note administered medication, patient in bed, respirations even, non labored, bed in low and locked position, call light within reach, applied cream to wound on left cheek
[2019-09-04 15:55] VITALS: BP_SYST 91
--- NOTE | 2019-09-04 16:13 | NUR ---
nurse note Flushed IV, flushed freely, hung IV medication, patient denies any pain or discomfort
--- NOTE | 2019-09-04 16:16 | NUR ---
MD ROUNDS DR BALLESTEROS BEDSIDE EXAMINING PATIENT
--- NOTE | 2019-09-04 17:58 | NUR ---
ATTENDING MD DR BARRY WAS CALLED, RE: MEDICATION TO HELP PT SLEEP. SPOKE TO DAMIEN.
--- NOTE | 2019-09-04 18:25 | NUR ---
nurse note spoke with Andre at [facility] (case management) regarding discharge update, stated Dr. Thompson wants patient to finish IV antibiotics before discharge
--- NOTE | 2019-09-04 19:20 | NUR ---
closing note Provided bedside SBAR to night RN, patient in bed respirations even non labored, bed in low and locked position, call light within reach, bed alarm on, endorsed care to night RN
[2019-09-04 20:05] VITALS: BP_SYST 99
--- NOTE | 2019-09-04 20:10 | NUR ---
ROUNDS Patient resting in bed, awake, breathing evenly and non labored on room air. Patient is on the phone with father, said she'll "take her meds later." No other needs at this time. Fall/safety precautions, will continue to monitor.
[2019-09-04] MEDS: MIRTAZAPINE 15 MG TABLET PO SCH (22:32)
[2019-09-04] MEDS: ACETAMINOPHEN 650 MG/20.3 ML UDC PO PRN (22:34)
--- NOTE | 2019-09-04 22:34 | NUR ---
MEDICATIONS/ROUNDS Patient resting in bed, awake, breathing evenly and non labored on room air. Patient complained of mild pain, educated patient on pain medication, nonpharmacological interventions, patient stated understanding. Patient also asked for her "sleeping pill," saying she has difficulty sleeping at night. Educated patient on medications, patient stated understanding. Administered due medications, Tylenol, and Vistaril, patient tolerated them well. Wound care on left cheek done, patient tolerated it well. Patient asked for some snacks which was provided. No other needs at this time. Fall/safety/aspiration precautions, will continue to monitor.
[2019-09-05 00:01] VITALS: BP_SYST 99
--- NOTE | 2019-09-05 02:25 | NUR ---
ROUNDS Patient resting in bed, eyes closed, breathing evenly and non labored on room air. No s/s of distress at this time, no other needs at this time. Fall/safety/aspiration precautions, will continue to monitor the patient.
--- NOTE | 2019-09-05 06:05 | NUR ---
CLOSING NOTES Patient resting in bed, eyes closed, breathing evenly and non labored on room air. Needs met throughout the shift. No s/s of distress at this time, no other needs at this time. Fall/safety/aspiration precautions, will endorse care to morning shift RN.
--- NOTE | 2019-09-05 07:30 | NUR ---
opening note received bedside sbar from night RN, patient in bed, respirations even, non labored, bed in low and locked position, call light within reach,
[2019-09-05 08:00] VITALS: BP_SYST 112
--- NOTE | 2019-09-05 08:40 | NUR ---
NURSE NOTE LEFT FOR CT SCAN
--- NOTE | 2019-09-05 08:50 | NUR ---
NURSE NOTE RETURNED FROM CT SCAN
[2019-09-05] MEDS: MAGNESIUM OXIDE 400 MG TABLET PO SCH (09:43)
[2019-09-05] MEDS: PANTOPRAZOLE SODIUM 40 MG TAB PO SCH (09:43)
[2019-09-05] MEDS: QUEtiapine FUMARATE 25 MG TABLET PO SCH ×3 (09:43→17:39)
[2019-09-05] MEDS: MULTIVITS,CA,MINERALS/IRON/FA 1 TABLET PO SCH (09:43)
[2019-09-05] MEDS: guaiFENesin 200 MG/10 ML UDC PO SCH ×3 (09:43→17:39)
[2019-09-05] MEDS: busPIRone HCL 5 MG TABLET PO SCH ×2 (09:43→15:37)
[2019-09-05] MEDS: KETOROLAC TROMETHAMINE 15 MG VIAL IVP PRN (09:44)
[2019-09-05] MEDS: SILVER SULFADIAZINE 1%, 25 GM TOPICAL CREAM (SSD) TP SCH (09:50)
[2019-09-05] MEDS: POTASSIUM CHLORIDE 20 MEQ TAB.PRT.SR PO SCH (10:39)
[2019-09-05] MEDS: CHOLECALCIFEROL (VITAMIN D3) 2,000 UNIT TABLET PO SCH (10:39)
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
--- NOTE | 2019-09-05 12:10 | NUR ---
NURSE NOTE SPOKE WITH PATIENTS MOTHER, INFORMED MOTHER OF PATIENTS MEDICAL STATUS, MOTHER VERBALIZED UNDERSTANDING, NO FURTHER QUESTIONS ASKED
--- NOTE | 2019-09-05 12:41 | NUR ---
Nutrition F/U Admitting Diagnosis: Acute respiratory failure Medical History Comment: PMHx includes polysubstance abuse per physician notes. Pt was found w/: respiratory failure, septic shock, PNA, transaminitis, electrolyte disturbance, and severe protein malnutrition per physician notes. 08/27 CXR: Persistent right basilar infiltrate. Increased left basilar infiltrate. 08/29: CT of the Chest w/o Contrast: small amount of ascites, anasarca Subjective Information Per EMR review, pt is still a/w psychiatric evaluation. Pt was seen by transfer worker today. RD s/w pt who reported that her appetite is still poor. RD offered Ensure and pt agreed and verbalized her flavor preference. RD to note in [employer]. Pt has been started on MVI and is still on remeron. Current Diet Order/Nutrition Support: Regular diet x 3 day Pertinent Medications: Protonix, Seroquel, Mag-ox, VIT D, Reglan, Remeron, Theragran-M Pertinent Labs COVID-19 PCR Negative x 2, (08/23, 08/28), 09/03 Na 136 WNL, K 4WNL, BG 89WNL, BUN 8 WNL, CRE 0.65 WNL Skin Integrity Comment: Kunal Score: 19 RN notes +wound to left cheek. No edema. Current % PO Negligible (17% average of 3 days) Estimated Energy Expenditure (kcals/day) 5256-6524 kcal/day (30-35 kcal/kg CBW for sepsis) Estimated Protein Required (g/day) 75-100g/day (1.5-2g/kg based on CBW for critical illness, sepsis) NEW Estimated Fluid Required (l/day) 1.5-1.8 L/day (1ml/calorie for maintenance) Problem/Etiology/Signs/Symptoms Increased nutrient needs r/t increased metabolic demands AEB critical illness sepsis (*ongoing) Expected Outcomes/Goals Monitor appetite and intake w/ goal of pt meeting at least 75% of estimated nutritional needs, labs trending WNL, normal GI function, and skin integrity/wt maintenance Dietitian Recommendations *Recommend Ensure Enlive BID. Roulette and Chocolate flavor only. ONS will provide additional 700 kcal and 40gm protein daily. *Continue Regular diet, MVI and appetite stimulant. *Encourage pt to increase PO intake. Follow Up Moderate Risk : F/U in 3-5 days
--- NOTE | 2019-09-05 12:47 | NUR ---
Dietitian Recommendations *Recommend Ensure Enlive BID. [place]ro[place] and Chocolate flavor only. ONS will provide additional 700 kcal and 40gm protein daily. *Continue Regular diet, MVI and appetite stimulant. *Encourage pt to increase PO intake. Please see Nutrition F/U for details. GABRIEL DENNY
--- NOTE | 2019-09-05 13:45 | NUR ---
DC Barriers: discussed dcp with dr. Thompson: the md ordered pt transfer to [place], but the pt is not on psych hold. Per dr. Rider:The patient is not suicidal or homicidal at this time.The patient can be discharged home, and per dr. Nena Schwab: Continue Rocephin IV D#10, can be changed to po augmentin 875mg po bid to complete 14 days therapy, if needed. MS PranayW spoke with pt this am: the pt wants to go home with family, does not want going to psych facility. I requested CHARLES Irvin to verify the discharge order with dr. Thompson when he comes in.
--- NOTE | 2019-09-05 14:00 | NUR ---
NURSE NOTE PATIENT IN BED, EYES CLOSED, RESPIRATIONS EVEN NON LABORED, BED IN LOW AND LOCKED POSITION, CALL LIGHT WITHIN REACH
--- NOTE | 2019-09-05 16:27 | NUR ---
SS NOTES: Per pt, she would want to get discharged to her aunt Toña or grandmother Morena's home. Pt will obtain phone numbers and will let nurse know when discharge order is in.
--- NOTE | 2019-09-05 16:45 | NUR ---
NURSE NOTE SPOKE WITH PATIENTS MOTHER, MOTHER AND PATIENT AGREE THAT PATIENT WILL COME HOME TO LIVE WITH MOTHER, MOTHER AGREES THAT SHE WILL MAKE APPOINTMENT FOR PCP AND PSYCHIATRIST AND FOLLOW UP WITH CARE. INFORMED DR. BARRY OF PATIENT AND MOTHERS DECISION
--- NOTE | 2019-09-05 17:16 | NUR ---
NURSE NOTES INFORMED PATIENT THAT SHE WILL BE DISCHARGED TODAY, PATIENT AGREES TO LIVE WITH MOTHER AND FOLLOW UP WITH PCP AND PSYCHIATRIST
[2019-09-05 18:59] VITALS: BP_SYST 101
--- NOTE | 2019-09-05 19:39 | NUR ---
D/C Patient Patient given medication reconciliation form and D/C instructions. Exit Care provided. Patient verbalized understanding. MD discussed with patient the results and treatment provided. Ambulatory with steady gait for discharge to home. Patient in stable condition, ID band removed. IV catheter removed, intact and dressing applied, no active bleeding. Patient educated on pain management. All belongings sent with patient. Patient taken to parents car via wheelchair,
== END 2019-09-05 19:39 | disposition home or self-care (01) | DRG 720 ==
LOC: SED 12:50 → SIC 15:29 → EEVIPCON 15:29 → SIC 20:16 → STU 08-30 18:30 → SMU 09-01 15:08
PROVIDERS: ADMIT Internal Medicine; ATTEND Internal Medicine
PROC: 0BH17EZ Insertion of Endotracheal Airway into Trachea, Via Natural or Artificial Opening (ICD-10-PCS; principal; 2019-08-24)
PROC: 5A1955Z Respiratory Ventilation, Greater than 96 Consecutive Hours (ICD-10-PCS; 2019-08-24)
PROC: 02HV33Z Insertion of Infusion Device into Superior Vena Cava, Percutaneous Approach (ICD-10-PCS; 2019-08-24)
PROC: B548ZZA Ultrasonography of Superior Vena Cava, Guidance (ICD-10-PCS; 2019-08-24)
DX: A40.8 Other streptococcal sepsis (principal); J96.01 Acute respiratory failure with hypoxia; R65.21 Severe sepsis with septic shock; E43 Unspecified severe protein-calorie malnutrition; J18.9 Pneumonia, unspecified organism; D69.6 Thrombocytopenia, unspecified; N17.9 Acute kidney failure, unspecified; E83.51 Hypocalcemia; R16.0 Hepatomegaly, not elsewhere classified; E87.8 Other disorders of electrolyte and fluid balance, not elsewhere classified; E86.0 Dehydration; F19.10 Other psychoactive substance abuse, uncomplicated; F32.9 Major depressive disorder, single episode, unspecified; N39.0 Urinary tract infection, site not specified; D64.9 Anemia, unspecified; R74.0 Nonspecific elevation of levels of transaminase and lactic acid dehydrogenase [LDH]; E87.6 Hypokalemia; Z20.828 Contact with and (suspected) exposure to other viral communicable diseases; F41.9 Anxiety disorder, unspecified; R45.851 Suicidal ideations; Z86.74 Personal history of sudden cardiac arrest; Z59.0 Homelessness; Z91.410 Personal history of adult physical and sexual abuse; Z79.899 Other long term (current) drug therapy; Z68.21 Body mass index [BMI] 21.0-21.9, adult; F13.20 Sedative, hypnotic or anxiolytic dependence, uncomplicated
CPT/HCPCS: 36415; 36600; 70450-TC; 71045; 71250-TC; 72100-TC; 72131; 80048; 80053; 80061; 80074; 80202-TC; 80307; 81000-TC; 82306; 82550-TC; 82553-TC; 82728; 82803-TC; 82962; 83540-TC; 83550-TC; 83605; 83615-TC; 83690-TC; 83735-TC; 84100-TC; 84484; 84703; 85007; 85025; 85027; 85379; 85384-TC; 85610-TC; 85651-TC; 85730-TC; 86140; 86710; 86738; 86886; 86900; 86901; 87040-TC; 87070-TC; 87081; 87086; 87186-TC; 87205-TC; 87449; 93005; 93306; 94002; 94003; 94640; 96365; 96372; 96375; 97110-GP; 97116-GP; 97530-GP; 99291; 99292; A6209; C1751; C9113; G0378; G0480; G0481; G0482; J0330; J0456; J0610; J0696; J1100; J1644; J1885; J2060; J2250; J2270; J2405; J2543; J2704; J3370; J3475; J3480; J3490; J7030; J7050; J7060; J7120; U0003-CS